=== PATIENT | male | born 1955 | race Caucasian/White ===

== ENCOUNTER 2017-01-15 08:40 | Day surgery (SDC) | payer OTHER ==
[2017-01-15] MEDS ORDERED: TETRACAINE 0.5% OPHTH 1 DOSE AFFEYE ONE ×2 (08:59→09:32)
[2017-01-15] MEDS ORDERED: ALPHAGAN-P OPHTH 1 DOSE AFFEYE ONE (09:03)
[2017-01-15 11:33] VITALS: BP 212/98
== END 2017-01-15 09:41 | disposition home or self-care (01) ==
LOC: SURG1 08:40
PROVIDERS: ATTEND Ophthalmology
PROC: 08QC3ZZ Repair Right Iris, Percutaneous Approach (ICD-10-PCS; principal; 2017-01-15 10:30)
DX: H40.10X1 Unspecified open-angle glaucoma, mild stage (principal)
CPT/HCPCS: 65855

== ENCOUNTER 2017-05-20 14:23 | Emergency (ER) | payer OTHER ==
[2017-05-20 14:34] VITALS: BMI 34.0
[2017-05-20] MEDS ORDERED: ZOFRAN INJ 4 MG VIAL IVP ONE (15:19)
[2017-05-20] MEDS ORDERED: NS 1000 ML 1,000 ML IV ONE (15:19)
[2017-05-20] MEDS ORDERED: MORPHINE SULFATE INJ 4 MG IVP ONE (15:19)
--- NOTE | 2017-05-20 15:23 | DR.ABDMALE ---
HPI - Time seen Time seen: 15:17 - PCP Primary Care Physician: DR. LONG - Complaint Chief Complaint Doctors Comments: Patient history as stated. He denies a history of trauma or colonic bowel disease. He denies fever or diarrhea. Chief Complaint:: PT STATES LAST NIGHT AT 2130 HE STARTED HAVING STOMACK PAIN , BACK PAIN , NAUSEA AND VOMITTING AND PROBLEMS PEEING.. Self Treatment fo Chief Complaint: PT TOOK PERCOCET, 2 MISSY ASA - Mode of arrival Mode of Arrival: Ambulatory - Timing Onset of Chief Complaint: 05/19/17 PMH - PMH Past Medical History: No Past Medical History: Arthritis Past Surgical History: Yes Surgical History: Appendectomy Past Surgical History Comment: KNEE REPLACEMENT AND BACK - Family History History of Family Medical Conditions: Yes Family Medical History: Cancer - Social History Does patient currently use any type of tobacco product: Yes Have you used tobacco products in the last 12 months: Yes Type of Tobacco Use: Cigarettes Does any household member use tobacco: No Alcohol Use: DAILY Do you use any recreational Drugs:: No Lives With: Family Lives Where: Home - infectious screening In the last 2 months have you had wt loss of >10#?: NO Have you had fever, night sweats or hemotysis?: No Have you traveled outside the country in the last 6 months?: No Isolation: Standard ROS - Review of Systems Eyes: No Symptoms Reported ENTM: No Symptoms Reported Respiratoy: No Symptoms Reported Cardiovascular: No Symptoms Reported Gastrointestinal/Abdominal: No Symptoms Reported Genitourinary: No Symptoms Reported Neurological: No Symptoms Reported Musculoskeletal: Back Pain, Other (stomach pain (LLQ)) Integumentary: No Symptoms Reported Hematologic/Lymphatic: No Symptoms Reported Endocrine: No Symptoms Reported Psychiatric: No Symptoms Reported All Other Systems: Reviewed and Negative PE - Vital Signs Vital Signs: Temp Pulse Resp BP BP Pulse Ox 05/20/17 17:07 203/77 05/20/17 15:58 220/105 05/20/17 14:29 97.8 F 90 18 213/107 97 01/15/17 09:36 212/98 - General Limitations: No Limitations General Appearance: Alert, In Distress - Head Head Exam: Normal Inspection, Atraumatic - Eyes Eye exam: Normal Appearance, PERRL, EOMI - ENT ENT Exam: Normal Exam - Neck Neck Exam: Normal Inspection, Full ROM - Chest Chest Inspection: Normal Inspection - Respiratory Respiratory Exam: Normal Lung Sounds Bilat Respiratory Exam: Bilateral Clear to Auscultation - Cardiovascular Cardiovascular Exam: Regular Rate - Abdominal Exam Abdominal Exam: Tenderness (LLQ) Abdominal Tenderness: LLQ - Rectal Rectal Exam: Deferred - Back Back Exam: Normal Inspection, Tenderness Course - Treatment Treatment: Toradol,Morphine, NS - Reevaluation 1st: Improved ROR - Labs Reviewed Result Diagrams: 05/20/17 15:35 05/20/17 15:35 Laboratory: WBC 9.1 X10^3/uL (3.6-10.0) 05/20/17 15:35 RBC 4.96 X10^6/uL (4.7-6.0) 05/20/17 15:35 Hgb 15.4 g/dL (13.5-18.0) 05/20/17 15:35 Hct 43.7 % (42.0-54.0) 05/20/17 15:35 MCV 88.2 fL (80.0-100.0) 05/20/17 15:35 MCH 31.0 pg (27.0-34.0) 05/20/17 15:35 MCHC 35.2 g/dL (33.0-35.0) H 05/20/17 15:35 RDW 13.9 % (11.6-16.5) 05/20/17 15:35 Plt Count 180 X10^3/uL (150.0-450.0) 05/20/17 15:35 MPV 6.9 fL (7.4-11.0) L 05/20/17 15:35 Neut % 74.5 % (42.0-75.0) 05/20/17 15:35 Lymph % 16.5 % (21.0-51.0) L 05/20/17 15:35 Citrus % 7.9 % (0.0-13.0) 05/20/17 15:35 Eos % 0.4 % (0.9-2.9) L 05/20/17 15:35 Baso % 0.7 % (0.2-1.0) 05/20/17 15:35 Neut # 6.8 x10^3/uL (2.2-4.8) H 05/20/17 15:35 Lymph # 1.5 X10^3/uL (1.3-2.9) 05/20/17 15:35 Citrus # 0.7 x10^3/uL (0.3-0.8) 05/20/17 15:35 Eos # 0.0 x10^3/uL (0.0-0.2) 05/20/17 15:35 Baso # 0.1 X10^3/uL (0.0-0.1) 05/20/17 15:35 Absolute Nucleated RBC 0.0 /100WBC 05/20/17 15:35 Sodium 135 mmol/L (136-145) L 05/20/17 15:35 Corrected Sodium 138 mmol/L (136-145) 05/20/17 15:35 Potassium 4.3 mmol/L (3.5-5.1) 05/20/17 15:35 Chloride 101 mmol/L (98-107) 05/20/17 15:35 Carbon Dioxide 23.4 mmol/L (21-32) 05/20/17 15:35 BUN 15 mg/dL (7-18) 05/20/17 15:35 Creatinine 1.02 mg/dL (0.70-1.30) 05/20/17 15:35 Est GFR (MDRD) Af Amer > 60 (>60) 05/20/17 15:35 Est GFR (MDRD) Non-Af > 60 (>60) 05/20/17 15:35 Glucose 216 mg/dL (65-99) H 05/20/17 15:35 Calcium 9.1 mg/dL (8.5-10.1) 05/20/17 15:35 Corrected Calcium TNP 05/20/17 15:35 Total Bilirubin 0.50 mg/dL (0.2-1.0) 05/20/17 15:35 AST 18 Units/L (15-37) 05/20/17 15:35 ALT 44 Units/L (12-78) 05/20/17 15:35 Alkaline Phosphatase 33 Units/L (46-116) L 05/20/17 15:35 C-Reactive Protein 6.70 mg/L (0-3.0) H 05/20/17 15:35 Total Protein 7.7 g/dL (6.4-8.2) 05/20/17 15:35 Albumin 4.2 g/dL (3.4-5.0) 05/20/17 15:35 Globulin 3.5 g/dL (2.5-4.5) 05/20/17 15:35 Albumin/Globulin Ratio 1.2 Ratio (1.1-2.1) 05/20/17 15:35 Amylase 26 Units/L (25-115) 05/20/17 15:35 Lipase 80 Units/L (73-393) 05/20/17 15:35 Specimen Type Clean catch urine 05/20/17 15:18 Urine Color Yellow (YELLOW) 05/20/17 15:18 Urine Appearance Clear (CLEAR) 05/20/17 15:18 Urine pH 5.0 (5.0 - 8.0) 05/20/17 15:18 Ur Specific [place] 1.025 (1.000-1.030) 05/20/17 15:18 Urine Protein 2+ (NEGATIVE) 05/20/17 15:18 Urine Glucose (UA) 3+ (NEGATIVE) 05/20/17 15:18 Urine Ketones 1+ (NEGATIVE) 05/20/17 15:18 Urine Occult Blood 4+ (NEGATIVE) 05/20/17 15:18 Urine Nitrite Negative (NEGATIVE) 05/20/17 15:18 Urine Bilirubin Negative (NEGATIVE) 05/20/17 15:18 Urine Urobilinogen Normal (NORMAL) 05/20/17 15:18 Ur Leukocyte Esterase Negative (NEGATIVE) 05/20/17 15:18 Urine RBC 04 - 08 /HPF (NEGATIVE) 05/20/17 15:18 Urine WBC Rare /HPF (NEGATIVE) 05/20/17 15:18 Ur Squamous Epith Cells Rare /HPF (NEGATIVE) 05/20/17 15:18 Amorphous Sediment 1+ /HPF (NEGATIVE) 05/20/17 15:18 Urine Bacteria Negative /HPF (NEGATIVE) 05/20/17 15:18 Urine Mucus Moderate /HPF (NEGATIVE) 05/20/17 15:18 Ur Culture Indicated? No/not indicated 05/20/17 15:18 - XRAY XRAY Interpreted by: Radiologist (CT Abd/Pelv: The visualized portions of the lung bases are unremarkable. There is left sided perinephric stranding with mild hydroureter hydronephrosis secondary to a 5 mm left mid ureteral stone the level of the aortic bifurcation. The liever is hypoattenuating compared to the spleen probably onn the basis of fatty infiltration. Solid otherwise unremarkable. The gallbladder is unremarkable in its CT appearance. No significant mesenteric lympadenopathy or stranding can be observed. No free fluid or free air is seen within the abdomen. No bowel wall thickening or bowel dilatation is present. The colon is unremarkable. Specifically, there is no diverticulosis noted within the sigmoid colon. The appendix is normal. The urinary bladder is grossly unremarkable. The bony structures are grossly intact. Impression: Left-sided obstructive uropathy as above.) - Diagnosis Discharge Problem: Hydrourter hydronehrosis, Obstructive uropathy - Discharge Plan Condition: Stable - Follow ups/Referrals Follow ups/Referrals: Jeison Long [Primary Care Provider] - 3 days - Instructions
[2017-05-20] MEDS ORDERED: MORPHINE SULFATE INJ 4 MG ONE (15:28)
[2017-05-20] MEDS ORDERED: ZOFRAN INJ 4 MG VIAL ONE (15:28)
[2017-05-20] MEDS ORDERED: NS 1000 ML 1,000 ML ONE (15:28)
[2017-05-20 15:48] LABS: BASOPHILS # (AUTO) 0.1 X10^3/uL (0.0-0.1); BASOPHILS % (AUTO) 0.7 % (0.2-1.0); EOSINOPHILS % (AUTO) 0.4 % (0.9-2.9); HEMATOCRIT 43.7 % (42.0-54.0); HEMOGLOBIN 15.4 g/dL (13.5-18.0); LYMPHOCYTES # (AUTO) 1.5 X10^3/uL (1.3-2.9); LYMPHOCYTES % (AUTO) 16.5 % (21.0-51.0); MEAN CORPUSCULAR HGB CONC 35.2 g/dL (33.0-35.0); MEAN CORPUSCULAR VOLUME 88.2 fL (80.0-100.0); MEAN PLATELET VOLUME 6.9 fL (7.4-11.0); MONOCYTES # (AUTO) 0.7 x10^3/uL (0.3-0.8); MONOCYTES % (AUTO) 7.9 % (0.0-13.0); NEUTROPHILS # (AUTO) 6.8 x10^3/uL (2.2-4.8); NEUTROPHILS % (AUTO) 74.5 % (42.0-75.0); PLATELET COUNT 180 X10^3/uL (150.0-450.0); RED BLOOD COUNT 4.96 X10^6/uL (4.7-6.0); RED CELL DISTRIBUTION WIDTH 13.9 % (11.6-16.5); WHITE BLOOD COUNT 9.1 X10^3/uL (3.6-10.0)
--- NOTE | 2017-05-20 15:52 | RAD ---
HISTORY: Abdominal pain. Study: Acute abdominal series. Comparison: Chest radiograph dated November 30, 2013. Findings: The trachea is midline. The cardiac silhouette is within normal limits. The lungs are clear withou t focal infiltrate or effusion. The bony thorax is unremarkable. Flat plate and upright evaluation of the abdomen demonstrates a nonobstructive bowel gas pattern. Th ere is no intraperitoneal free air or abnormal air-fluid levels on upright imaging. There are degen erative changes of the lumbar spine. The bony structures are grossly intact. IMPRESSION: 1. No acute cardiopulmonary disease. 2. No evidence for acute abdominal pathology. Reported By:
[2017-05-20 15:55] LABS: ALANINE AMINOTRANSFERASE 44 Units/L (12-78); ALBUMIN 4.2 g/dL (3.4-5.0); ALKALINE PHOSPHATASE 33 Units/L (46-116); AMYLASE 26 Units/L (25-115); ASPARTATE AMINO TRANSFERASE 18 Units/L (15-37); BLOOD UREA NITROGEN 15 mg/dL (7-18); CALCIUM 9.1 mg/dL (8.5-10.1); CARBON DIOXIDE 23.4 mmol/L (21-32); CHLORIDE 101 mmol/L (98-107); COR NA(FOR HYPERGLY) 138 mmol/L (136-145); CREATININE 1.02 mg/dL (0.70-1.30); GLUCOSE 216 mg/dL (65-99); LIPASE 80 Units/L (73-393); SODIUM 135 mmol/L (136-145); TOTAL PROTEIN 7.7 g/dL (6.4-8.2); eGFR BLACK RACES > 60 (>60); eGFR NON BLACK RACES > 60 (>60)
[2017-05-20] MEDS ORDERED: TORADOL 30 MG VIAL ONE (15:57)
[2017-05-20] MEDS ORDERED: TORADOL 30 MG VIAL IVP ONE (15:57)
[2017-05-20 15:58] LABS: BILIRUBIN,URINE NEGATIVE (NEGATIVE); BLOOD/HEMOGLOBIN,URINE 4+ (NEGATIVE); GLUCOSE, URINE 3+ (NEGATIVE); KETONES,URINE 1+ (NEGATIVE); LEUKOCYTE ESTERASE ,URINE NEGATIVE (NEGATIVE); NITRITES,URINE NEGATIVE (NEGATIVE); PROTEIN,URINE 2+ (NEGATIVE); UROBILINOGEN,URINE NORMAL (NORMAL)
[2017-05-20 16:00] LABS: APPEARANCE,URINE CLEAR (CLEAR); COLOR,URINE YELLOW (YELLOW)
[2017-05-20] MEDS ORDERED: CATAPRES TAB 0.1 MG PO ONE (16:00)
[2017-05-20] MEDS ORDERED: CATAPRES TAB 0.1 MG ONE (16:01)
[2017-05-20 16:04] LABS: AMORPHOUS SEDIMENT,UR 1+ /HPF (NEGATIVE); BACTERIA,URINE NEGATIVE /HPF (NEGATIVE); MUCUS,URINE MODERATE /HPF (NEGATIVE); SQUAMOUS EPITHELIAL CELL,UR RARE /HPF (NEGATIVE)
[2017-05-20] MEDS ORDERED: NS 100 ML IV 100 ML IV ONE (16:21)
--- NOTE | 2017-05-20 16:59 | CT ---
HISTORY: Abdominal pain since last night with nausea and vomiting Study: CT abdomen and pelvis with contrast Comparison: None Technique: Multiple axial images of the abdomen and pelvis were obtained from the lung bases to the pubic symph ysis after the administration of IV contrast. Findings: The visualized portions of the lung bases are unremarkable. There is left-sided perinephric strandi ng with mild hydroureter hydronephrosis secondary to a 5 millimeter left mid ureteral stone the leve l of the aortic bifurcation. The liver is hypoattenuating compared to the spleen probably on the bas is of fatty infiltration. Solid otherwise unremarkable.. The gallbladder is unremarkable in its CT a ppearance. No significant mesenteric lymphadenopathy or stranding can be observed. No free fluid o r free air is seen within the abdomen. No bowel wall thickening or bowel dilatation is present. Th e colon is unremarkable. Specifically, there is no diverticulosis noted within the sigmoid colon. T he appendix is normal. The urinary bladder is grossly unremarkable. The bony structures are grossly intact. IMPRESSION: 1. Left-sided obstructive uropathy as above. Reported By:
[2017-05-20 17:20] VITALS: BP 84/50
== END 2017-05-20 17:24 | disposition home or self-care (01) ==
LOC: ER 14:41
DX: N13.4 Hydroureter (principal); N13.8 Other obstructive and reflux uropathy; R10.84 Generalized abdominal pain
CPT/HCPCS: 36415; 74022; 74177; 80053; 81001; 82150; 83690; 85025; 86140; 96365; 96374; 96375; 99283; A4222; J1885; J2270; J2405

== ENCOUNTER → 2018-02-21 | Outpatient (CLI) | payer OTHER ==
[~2018-02-21] MED LIST: NS 100 ML IV 100 ML IV ONE
--- NOTE | 2018-02-21 17:48 | CT ---
HISTORY: Left foot infection, 3rd digit for 1 month. Right leg pain. Study: CT angiography with bilateral lower extremity runoff with and without contrast Comparison: Abdomen CT 05/20/2017 Technique: Multiple axial images were obtained both prior to and after the administration of IV contrast. 3D re constructions were performed utilizing radial maximum intensity projection imaging. Dose reduction te chniques including Automated Exposure Control (AEC) and adjustment of mA and kV were utilized. Findings: The visualized lung bases are clear. The solid organs are unremarkable. Normal gallbladder. There i s mild bowel wall thickening and mucosal hyper enhancement of the distal colon. No evidence of bowel obstruction. No free fluid or free air. The appendix is normal. Nicholas laminectomy changes are noted a t L5. The urinary bladder is unremarkable. Abdominal aorta: There is scattered density atherosclerotic plaque throughout the aorta without evide nce of aneurysm or dissection. Celiac trunk: Calcified plaque is seen at the origin without significant stenosis. Superior mesenteric artery: Calcified plaque is seen at the origin without significant stenosis. Renal Arteries: There are single bilateral renal arteries with [id number] stenosis on the left. Inferior mesenteric artery: Appears patent Common iliac arteries: No significant stenosis. External iliac arteries: No significant stenosis. Common femoral arteries: No significant stenosis. Superficial femoral arteries: Scattered multifocal plaque is seen throughout the bilateral superficia l femoral arteries without high-grade stenosis. Popliteal arteries: Multifocal plaque is seen bilaterally. Portions of the right popliteal artery are obscured by metallic streak artifact from prosthesis. There is a moderate to high-grade stenosis of the left popliteal artery proximal to the trifurcation. Tibioperoneal runoff: There is three-vessel runoff to the bilateral ankles. IMPRESSION: 1. Moderate to high-grade stenosis of the left popliteal artery just proximal to the trifurcation. 2. Otherwise no significant lower extremity arterial stenosis is identified however please note porti ons of the right popliteal artery are obscured by metallic streak artifact from prosthesis. 3. Normal caliber aorta with mild to moderate stenosis of the proximal left renal artery. Visceral ve ssels are otherwise unremarkable. Reported By:
== END ==
LOC: RAD 13:14
PROVIDERS: ATTEND Internal Medicine
DX: L03.032 Cellulitis of left toe (principal); M79.604 Pain in right leg
CPT/HCPCS: 73706; A4222

== ENCOUNTER 2019-08-19 09:14 | Observation (INO) ==
[2019-08-19 10:28] LABS: BASOPHILS % (AUTO) 0.7 % (0.2-1.0); EOSINOPHILS # (AUTO) 0.2 x10^3/uL (0.0-0.2); EOSINOPHILS % (AUTO) 3.4 % (0.9-2.9); HEMATOCRIT 27.7 % (42.0-54.0); HEMOGLOBIN 8.8 g/dL (13.5-18.0); LYMPHOCYTES # (AUTO) 1.2 X10^3/uL (1.3-2.9); LYMPHOCYTES % (AUTO) 24.8 % (21.0-51.0); MEAN CORPUSCULAR HEMOGLOBIN 21.9 pg (27.0-34.0); MEAN CORPUSCULAR HGB CONC 31.7 g/dL (33.0-35.0); MEAN CORPUSCULAR VOLUME 69.2 fL (80.0-100.0); MEAN PLATELET VOLUME 6.6 fL (7.4-11.0); MONOCYTES # (AUTO) 0.3 x10^3/uL (0.3-0.8); MONOCYTES % (AUTO) 6.3 % (0.0-13.0); NEUTROPHILS # (AUTO) 3.2 x10^3/uL (2.2-4.8); NEUTROPHILS % (AUTO) 64.8 % (42.0-75.0); PLATELET COUNT 245 X10^3/uL (150.0-450.0); RED BLOOD COUNT 4.01 X10^6/uL (4.7-6.0); RED CELL DISTRIBUTION WIDTH 17.8 % (11.6-16.5)
[2019-08-19 10:43] LABS: ALANINE AMINOTRANSFERASE 30 Units/L (12-78); ALBUMIN 3.9 g/dL (3.4-5.0); ALKALINE PHOSPHATASE 26 Units/L (46-116); ASPARTATE AMINO TRANSFERASE 17 Units/L (15-37); BLOOD UREA NITROGEN 11 mg/dL (7-18); CALCIUM 9.1 mg/dL (8.5-10.1); CARBON DIOXIDE 26.6 mmol/L (21-32); CHLORIDE 104 mmol/L (98-107); COR NA(FOR HYPERGLY) 141 mmol/L (136-145); CREATININE 0.87 mg/dL (0.70-1.30); SODIUM 140 mmol/L (136-145); TOTAL PROTEIN 7.2 g/dL (6.4-8.2); eGFR NON BLACK RACES > 60 (>60)
[2019-08-19 10:57] LABS: HYPOCHROMASIA 2+; MICROCYTOSIS 1+; PLATELET MORPHOLOGY COMMENT NORMAL (NORMAL)
[2019-08-19] MEDS ORDERED: DRUG FILTER EXTENSION SET ONE (11:29)
[2019-08-19] MEDS: PEPCID 20 MG IV PREMIX* 20 MG/50 ML BAG IV SCH ×2 (12:23→20:48)
[2019-08-19] MEDS: PROTONIX INJ 40 MG VIAL IVP SCH ×2 (12:23→20:48)
[2019-08-19] MEDS: NS 1000 ML 1,000 ML IV SCH ×3 (12:39→23:18)
[2019-08-19] MEDS ORDERED: DIPRIVAN VIAL ONE (14:17)
[2019-08-19] MEDS ORDERED: DIPRIVAN VIAL 20 ML ONE (14:50)
[2019-08-19] MEDS ORDERED: DIPRIVAN VIAL 0 ML ONE (15:28)
[2019-08-19] MEDS ORDERED: DULCOLAX TAB EC 5 MG PO ONE (22:00)
[2019-08-20 06:30] LABS: BASOPHILS % (AUTO) 0.9 % (0.2-1.0); EOSINOPHILS # (AUTO) 0.2 x10^3/uL (0.0-0.2); EOSINOPHILS % (AUTO) 5.1 % (0.9-2.9); HEMATOCRIT 25.5 % (42.0-54.0); HEMOGLOBIN 8.2 g/dL (13.5-18.0); LYMPHOCYTES # (AUTO) 1.3 X10^3/uL (1.3-2.9); LYMPHOCYTES % (AUTO) 28.3 % (21.0-51.0); MEAN CORPUSCULAR HEMOGLOBIN 22.1 pg (27.0-34.0); MEAN CORPUSCULAR HGB CONC 31.9 g/dL (33.0-35.0); MEAN CORPUSCULAR VOLUME 69.2 fL (80.0-100.0); MEAN PLATELET VOLUME 6.9 fL (7.4-11.0); MONOCYTES # (AUTO) 0.3 x10^3/uL (0.3-0.8); NEUTROPHILS # (AUTO) 2.7 x10^3/uL (2.2-4.8); NEUTROPHILS % (AUTO) 58.7 % (42.0-75.0); PLATELET COUNT 226 X10^3/uL (150.0-450.0); RED BLOOD COUNT 3.69 X10^6/uL (4.7-6.0); RED CELL DISTRIBUTION WIDTH 17.9 % (11.6-16.5); WHITE BLOOD COUNT 4.7 X10^3/uL (3.6-10.0)
[2019-08-20 06:32] LABS: ALANINE AMINOTRANSFERASE 26 Units/L (12-78); ALBUMIN 3.4 g/dL (3.4-5.0); ALKALINE PHOSPHATASE 24 Units/L (46-116); ASPARTATE AMINO TRANSFERASE 20 Units/L (15-37); BLOOD UREA NITROGEN 7 mg/dL (7-18); CALCIUM 8.4 mg/dL (8.5-10.1); CARBON DIOXIDE 24.5 mmol/L (21-32); CHLORIDE 107 mmol/L (98-107); CREATININE 0.72 mg/dL (0.70-1.30); SODIUM 141 mmol/L (136-145); TOTAL PROTEIN 6.4 g/dL (6.4-8.2); eGFR NON BLACK RACES > 60 (>60)
[2019-08-20 07:05] LABS: HYPOCHROMASIA 1+; MICROCYTOSIS 1+; PLATELET MORPHOLOGY COMMENT NORMAL (NORMAL)
[2019-08-20] MEDS: PROTONIX INJ 40 MG VIAL IVP SCH ×2 (08:44→20:24)
[2019-08-20] MEDS: PEPCID 20 MG IV PREMIX* 20 MG/50 ML BAG IV SCH ×2 (08:44→20:24)
--- NOTE | 2019-08-20 08:47 | DR.CONSULT ---
Consult - Consultation for Day of: Date: 08/19/19 - Chief Complaint Chief Complaint: Patient referred for GI Bleed. Patient with complaints of dysphagia, dyspepsia, epigastric and chest pain, diarrhea and melena. - History of Present Illness History of Present Illness: Patient is a 64yo male who referred for GI Bleed. Patient with complaints of dysphagia, dyspepsia, epigastric and chest pain, diarrhea x 2 months and melena x 1 week. Patient denies nausea, vomiting, constipation and hematochezia. Patient has never had colon or EGD. Hgb 8.8, Hct 27.7, Plt 245, BUN 11, Creatinine 0.87. - Past Medical History Past Medical History: Arthritis - Past Surgical History Surgical History: Appendectomy, Joint Replacement, Lithotripsy, Other - Family History Family Medical History: Cancer - Social History Does patient currently use any type of tobacco product: No Have you used tobacco products in the last 12 months: No Type of Tobacco Use: None Does any household member use tobacco: No Alcohol Use: DAILY Drug Use: Marijuana - Medications Home Medications: No Known Drug Allergies Allergy (Verified 08/19/19 16:22) CONTINUE taking the following medications brimonidine 1 drp OPHTHALMIC (EYE) BID 08/19/19 [History] celecoxib 200 mg PO DAILY 08/19/19 [History] latanoprost 1 drp OPHTHALMIC (EYE) HS 08/19/19 [History] oxycodone-acetaminophen 1 tab PO QID PRN 08/19/19 [History] pantoprazole 40 mg PO DAILY 08/19/19 [History] rosuvastatin 10 mg PO HS 08/19/19 [History] - Review of Systems Gastrointestinal: See HPI, Abdominal Pain (epigastric ), Diarrhea, Melena. denies: Nausea, Vomiting, Constipation, Hematochezia, Other - Physical Exam Vital Signs: Temperature 98.1 F Pulse Rate [Right Brachial] 76 Pulse Rate [Left Brachial] 84 Respiratory Rate 18 Blood Pressure [Right Arm] 158/76 Blood Pressure 84/50 O2 Sat by Pulse Oximetry 98 Oriented: Normal Eyes: Normal Ear: Normal Nose: Normal Throat: Normal Respiratory: Clear Throughout Cardiovascular: Normal : Normal Auscultation: Bowel Sounds: Normal Palpation: Normal, Other (no distention). negative: Spleen Enlarged, Liver Enlarged, Mass Pulsatile Tenderness: Normal (no tenderness) Skin: Normal Musculoskeletal: Normal Psychiatric: Normal Mood Description: Calm Affect: Normal Speech Pattern: Clear, Appropriate - Plan Plan: Assessment. 1. Anemia, Melena. 2. epigastric pain, atypical chest pain. 3. Diarrhea. Plan. 1. EGD today, Colon on . 2. Protonix IV. 3. Stool Studies. Plan reviewed with Dr. Guzman - Allergies Allergies/Adverse Reactions: Allergies Allergy/AdvReac Type Severity Reaction Status Date / Time No Known Drug Allergies Allergy Verified 08/19/19 16:22
--- NOTE | 2019-08-20 10:36 | DR.UPDATE ---
H&P Update History and Physical Update: History and Physical reviewed and patient examined. Changes noted: Yes with the following: RETURNED TO THE OFFICE TODAY WITH COMPLAINTS OF ABDOMINAL PAIN, BLOOD IN STOOL, AND GENERALIZED WEAKNESS AND FATIGUE. HE ALSO REPORTED SHORTNESS OF BREATH AND DIZZINESS. WE ADMITTED PATIENT FOR FURTHER EVALUATION AND TREATMENT OF GI BLEED, SHORTNESS OF BREATH, AND ANEMIA. ON ADMISSION, WE PLAN TO OBTAIN LABS AND CHECK STOOLS FOR OCCULT BLOOD. WE WILL CONSULT WITH GASTROENTEROLOGY FOR EGD/COLONOSCOPY. WE WILL START NORMAL SALINE AT 80ML/HR, IV PEPCID, IV PROTONIX. OTHERWISE, WE WILL FOLLOW UP WITH AM LABS AND CONTINUE TO MONITOR. Prescription drug monitoring program results: PDMP was not reviewed
[2019-08-20] MEDS ORDERED: MIRALAX POWDER (255 GRAMS BTL) PO NR (12:00)
[2019-08-20] MEDS ORDERED: BENADRYL INJ 50 MG VIAL IVP ONE (12:57)
[2019-08-20] MEDS ORDERED: TYLENOL 325 MG TAB PO ONE (12:57)
[2019-08-20] MEDS ORDERED: NS 100 ML IV 100 ML IV ONE ×2 (13:15→16:44)
[2019-08-20] MEDS: NS 1000 ML 1,000 ML IV SCH (14:01)
[2019-08-20] MEDS ORDERED: DULCOLAX TAB EC 5 MG PO ONE (18:00)
[2019-08-20] MEDS ORDERED: NORMODYNE INJ 100 MG VIAL ONE (18:20)
[2019-08-20] MEDS: NORMODYNE INJ 20 MG VIAL IV PRN (18:30)
[2019-08-20 20:02] LABS: HEMATOCRIT 27.8 % (42.0-54.0)
--- NOTE | 2019-08-20 22:19 | PCM.PROG ---
Progress Note - Progress Note for Day of Date of Exam: 08/20/19 - Subjective Subjective: WAS ADMITTED FOR A GI BLEED, ANEMIA, SHORTNESS OF BREATH, AND GENERALIZED WEAKNESS. TODAY, HE IS ALERT AND ORIENTED, LYING IN BED ON MORNING ROUNDS. HE CONTINUES WITH COMPLAINTS OF SHORTNESS OF BREATH, DECREASED APPETITIE, AND BLOOD IN STOOL TODAY. ON EXAMINATION, HEART IS REGULAR IN RATE AND RHYTHM. BILATERAL LUNGS ARE CLEAR TO AUSCULTATION. ABDOMEN IS ROUND, SOFT, AND NOTED WITH MILD, DIFFUSE TENDERNESS. NORMAL BOWEL SOUNDS ARE NOTED IN ALL QUADRANTS. HIS VITALS THIS MORNING ARE: 98.7-80-18-100%-178/71. LABS WERE OBTAINED. ABNORMAL LAB VALUES INCLUDE THE FOLLOWING: RBC 3.69, HGB 8.2, HCT 25.5, GLUCOSE 109, CALCIUM 8.4, IRON 17, FERRITIN 12, ALK PHOS 24. STOOL IS POSITIVE FOR OCCULT BLOOD. AN EGD WAS PERFORMED YESTERDAY. POST ENDOSCOPY DIAGNOSES INCLUDE THE FOLLOWING: Ectopic mucosa in the upper most esophagus consistent with an inlet patch, biopsies done; antral gastritis and mild distal esophagitis. HE IS CURRENTLY RECEIVING NORMAL SALINE AT 80ML/HR, IV PEPCID, IV PROTONIX. TODAY, WE WILL TYPE AND SCREEN AND CROSSMATCH TWO UNITS OF PACKED RED BLOOD CELLS. HE IS SCHEDULED FOR A COLONOSCOPY TOMORROW MORNING. AFTER COLONOSCOPY, WE WILL OBTAIN AN ABDOMEN/PELVIS CT WITH CONTRAST. OTHERWISE, WE PLAN TO FOLLOW UP WITH AM LABS AND CONTINUE TO MONITOR. - Past Medical Family Social History Past Med/Fam/Surg Hx: No changes since H&P Allergies: Allergies No Known Drug Allergies Allergy (Verified 08/19/19 16:22) - Review of Systems ROS: No change since H&P - Vital Signs and I&O's Vital Signs: Temperature 98.8 F Pulse Rate [Right Brachial] 76 Pulse Rate [Left Brachial] 78 Respiratory Rate 20 Blood Pressure [Right Arm] 173/80 Blood Pressure 84/50 O2 Sat by Pulse Oximetry 99 Intake and Output: Intake & Output 08/18/19 08/19/19 08/20/19 08/21/19 11:59 11:59 11:59 11:59 Intake Total 2079 1380 / 1380 Balance 2079 1380 / 1380 - Physical Exam Oriented: Normal Eyes: Normal Ear: Normal Nose: Normal Throat: Normal Respiratory: Normal Cardiovascular: Normal : Normal Auscultation: Bowel Sounds: Normal Palpation: Normal Tenderness: Normal (no tenderness) Skin: Normal Musculoskeletal: Normal Psychiatric: Normal Mood Description: Calm Affect: Normal Speech Pattern: Clear, Appropriate - Laboratory and Diagnostics Result Diagrams: 08/20/19 19:54 08/20/19 05:12 Labs: Laboratory WBC 4.7 X10^3/uL (3.6-10.0) 08/20/19 05:12 RBC 3.69 X10^6/uL (4.7-6.0) L 08/20/19 05:12 Hgb 9.0 g/dL (13.5-18.0) L 08/20/19 19:54 Hct 27.8 % (42.0-54.0) L 08/20/19 19:54 MCV 69.2 fL (80.0-100.0) L 08/20/19 05:12 MCH 22.1 pg (27.0-34.0) L 08/20/19 05:12 MCHC 31.9 g/dL (33.0-35.0) L 08/20/19 05:12 RDW 17.9 % (11.6-16.5) H 08/20/19 05:12 Plt Count 226 X10^3/uL (150.0-450.0) 08/20/19 05:12 Plt Count Comment Adequate (ADEQUATE) 08/20/19 05:12 MPV 6.9 fL (7.4-11.0) L 08/20/19 05:12 Neut % (Auto) 58.7 % (42.0-75.0) 08/20/19 05:12 Lymph % (Auto) 28.3 % (21.0-51.0) 08/20/19 05:12 [place] % (Auto) 7.0 % (0.0-13.0) 08/20/19 05:12 Eos % (Auto) 5.1 % (0.9-2.9) H 08/20/19 05:12 Baso % (Auto) 0.9 % (0.2-1.0) 08/20/19 05:12 Neut # (Auto) 2.7 x10^3/uL (2.2-4.8) 08/20/19 05:12 Lymph # (Auto) 1.3 X10^3/uL (1.3-2.9) 08/20/19 05:12 [place] # (Auto) 0.3 x10^3/uL (0.3-0.8) 08/20/19 05:12 Eos # (Auto) 0.2 x10^3/uL (0.0-0.2) 08/20/19 05:12 Baso # (Auto) 0.0 X10^3/uL (0.0-0.1) 08/20/19 05:12 Absolute Nucleated RBC 0.0 /100WBC 08/20/19 05:12 Plt Morphology Comment Normal (NORMAL) 08/20/19 05:12 RBC Morphology Abnormal (NORMAL) 08/20/19 05:12 Hypochromasia 1+ A 08/20/19 05:12 Microcytosis 1+ A 08/20/19 05:12 Sodium 141 mmol/L (136-145) 08/20/19 05:12 Corrected Sodium TNP 08/20/19 05:12 Potassium 3.9 mmol/L (3.5-5.1) 08/20/19 05:12 Chloride 107 mmol/L (98-107) 08/20/19 05:12 Carbon Dioxide 24.5 mmol/L (21-32) 08/20/19 05:12 BUN 7 mg/dL (7-18) 08/20/19 05:12 Creatinine 0.72 mg/dL (0.70-1.30) 08/20/19 05:12 Est GFR (MDRD) Af Amer > 60 (>60) 08/20/19 05:12 Est GFR (MDRD) Non-Af > 60 (>60) 08/20/19 05:12 Glucose 109 mg/dL (65-99) H 08/20/19 05:12 Calcium 8.4 mg/dL (8.5-10.1) L 08/20/19 05:12 Corrected Calcium TNP 08/20/19 05:12 Iron 17 ug/dL (50-175) L 08/20/19 10:34 Transferrin 329 mg/dL (202-364) 08/20/19 10:34 Ferritin 12 ng/mL (26-388) L 08/20/19 10:34 Total Bilirubin 0.40 mg/dL (0.2-1.0) 08/20/19 05:12 AST 20 Units/L (15-37) 08/20/19 05:12 ALT 26 Units/L (12-78) 08/20/19 05:12 Alkaline Phosphatase 24 Units/L (46-116) L 08/20/19 05:12 Total Protein 6.4 g/dL (6.4-8.2) 08/20/19 05:12 Albumin 3.4 g/dL (3.4-5.0) 08/20/19 05:12 Globulin 3.0 g/dL (2.5-4.5) 08/20/19 05:12 Albumin/Globulin Ratio 1.1 Ratio (1.1-2.1) 08/20/19 05:12 Vitamin B12 723 pg/mL (193-986) 08/20/19 10:34 Folate 18.5 ng/mL (>8.6) 08/20/19 10:34 Stool Description 100g,liquid,brown 08/19/19 19:35 Stl Occult Blood (IFOB) Positive (NEGATIVE) A 08/19/19 19:35 Tissue Pathology To follow 08/19/19 15:28 Blood Type A POSITIVE 08/20/19 10:34 Antibody Screen Negative 08/20/19 10:34 Crossmatch See Detail 08/20/19 10:34 - Plan (1) GI bleed Status: Acute Qualifiers: GI bleed type/associated pathology: unspecified gastrointestinal hemorrhage type Qualified Code(s): K92.2 - Gastrointestinal hemorrhage, unspecified Plan: COLONOSCOPY TOMORROW MORNING, NORMAL SALINE AT 80ML/HR, IV PEPCID, IV PRO TONIX. (2) Shortness of breath Status: Acute (3) Anemia Status: Acute Qualifiers: Anemia type: iron deficiency Iron deficiency anemia type: unspecified iron deficiency Qualified Code(s): D50.9 - Iron deficiency anemia, unspecified Plan: TRANSFUSE 2 UNITS PRBC, CONTINUE TO MONITOR
[2019-08-21] MEDS: NS 1000 ML 1,000 ML IV SCH ×2 (01:34→15:50)
[2019-08-21 06:30] LABS: BASOPHILS # (AUTO) 0.1 X10^3/uL (0.0-0.1); EOSINOPHILS # (AUTO) 0.2 x10^3/uL (0.0-0.2); EOSINOPHILS % (AUTO) 2.9 % (0.9-2.9); HEMATOCRIT 27.8 % (42.0-54.0); LYMPHOCYTES # (AUTO) 1.1 X10^3/uL (1.3-2.9); LYMPHOCYTES % (AUTO) 18.8 % (21.0-51.0); MEAN CORPUSCULAR HEMOGLOBIN 23.1 pg (27.0-34.0); MEAN CORPUSCULAR HGB CONC 32.5 g/dL (33.0-35.0); MEAN PLATELET VOLUME 6.9 fL (7.4-11.0); MONOCYTES # (AUTO) 0.4 x10^3/uL (0.3-0.8); MONOCYTES % (AUTO) 6.6 % (0.0-13.0); NEUTROPHILS % (AUTO) 70.7 % (42.0-75.0); PLATELET COUNT 211 X10^3/uL (150.0-450.0); RED BLOOD COUNT 3.92 X10^6/uL (4.7-6.0); RED CELL DISTRIBUTION WIDTH 18.8 % (11.6-16.5); WHITE BLOOD COUNT 5.7 X10^3/uL (3.6-10.0)
[2019-08-21 06:36] LABS: ALANINE AMINOTRANSFERASE 24 Units/L (12-78); ALBUMIN 3.7 g/dL (3.4-5.0); ALKALINE PHOSPHATASE 25 Units/L (46-116); ASPARTATE AMINO TRANSFERASE 15 Units/L (15-37); BLOOD UREA NITROGEN 6 mg/dL (7-18); CALCIUM 8.6 mg/dL (8.5-10.1); CARBON DIOXIDE 22.6 mmol/L (21-32); CHLORIDE 106 mmol/L (98-107); COR NA(FOR HYPERGLY) 142 mmol/L (136-145); CREATININE 0.83 mg/dL (0.70-1.30); SODIUM 141 mmol/L (136-145); TOTAL PROTEIN 6.6 g/dL (6.4-8.2); eGFR NON BLACK RACES > 60 (>60)
[2019-08-21 06:53] LABS: HYPOCHROMASIA 1+; MICROCYTOSIS 1+; PLATELET MORPHOLOGY COMMENT NORMAL (NORMAL)
[2019-08-21 06:54] LABS: ANISOCYTOSIS 1+
[2019-08-21] MEDS: PROTONIX INJ 40 MG VIAL IVP SCH (08:23)
[2019-08-21] MEDS: PEPCID 20 MG IV PREMIX* 20 MG/50 ML BAG IV SCH (08:23)
[2019-08-21] MEDS ORDERED: PATIENT'S HOME MEDICATION (Oxycodone-Acetaminophen 1 TAB) PO PRN (11:36)
[2019-08-21] MEDS ORDERED: ALPHAGAN 0.2% OPHTH SOLN OP SCH (12:00)
[2019-08-21] MEDS ORDERED: CELEBREX PO SCH (12:00)
[2019-08-21] MEDS: NORMODYNE INJ 20 MG VIAL IV PRN (12:52)
[2019-08-21] MEDS ORDERED: PERCOCET TAB 5/325 MG PO PRN (12:53)
[2019-08-21] MEDS ORDERED: DIPRIVAN VIAL ONE (15:03)
[2019-08-21] MEDS ORDERED: STERILE WATER IRRIGATION IR ONE (15:23)
--- NOTE | 2019-08-21 15:33 | CT ---
History: Pain and status post colonoscopy with GI bleed Exam: CT abdomen and pelvis with contrast Comparison: 05/20/2017 Technique: Axial spiral images were obtained from lung bases through the pubic symphysis after administration IV and oral contrast. Automated dose control was utilized. Findings: There is mild linear scarring along the lung bases which are unchanged. The liver is normal size with fatty replacement throughout . The gallbladder, pancreas , and bile ducts are normal. The spleen measures 16 cm in length is normal density and unchanged. The adrenals are normal . The kidneys are normal size and function normally with no hydronephrosis, renal stone , or mass. The appendix is normal. There is mild a short segmental area of mild circumferential mucosal thickening along the mid to distal sigmoid colon extending distally , just proximal to the rectosigmoid region . There is mild stranding around the colon which is more prominent . No pericolonic fluid collection or mass is seen. No adenopathy or ascites is seen. The mesentery is unremarkable. The bladder is unremarkable. The prostate gland is mildly enlarged with mild fat density along the inguinal regions with no bowel loops in the area which is unchanged . There is no bowel obstruction . There are diverticula throughout the sigmoid colon. There are small subchondral cystic changes along the right femoral head anteriorly which are unchanged . There degenerative changes seen in the spine with no aggressive osseous lesion. IMPRESSION: Questionable short segmental area of mild diverticulitis or possible neoplasm along the mid to distal sigmoid colon with no pericolonic fluid collection and no bowel obstruction suggest . Recommend a follow-up barium enema or endoscopy, after the patient's symptoms resolve . Scattered diverticula throughout the sigmoid colon and a normal appendix. Mild splenomegaly . Normal size liver without with fatty changes throughout . Mild bibasilar discoid atelectasis or scarring . Mild prostatic enlargement and questionable small inguinal hernias bilaterally. Reported By:
[2019-08-21 16:45] VITALS: BP 164/79
[2019-08-21] MEDS ORDERED: CRESTOR TAB 10 MG PO SCH (21:00)
[2019-08-21] MEDS ORDERED: XALATAN OP SCH (21:00)
== END 2019-08-21 16:35 | disposition home or self-care (01) ==
LOC: MED/SURG
PROVIDERS: ADMIT Internal Medicine; ATTEND Internal Medicine
DX: K29.01 Acute gastritis with bleeding; R06.02 Shortness of breath; N40.0 Benign prostatic hyperplasia without lower urinary tract symptoms; D50.8 Other iron deficiency anemias; C18.7 Malignant neoplasm of sigmoid colon; R42 Dizziness and giddiness; K21.9 Gastro-esophageal reflux disease without esophagitis; R07.89 Other chest pain; K92.1 Melena; Z79.899 Other long term (current) drug therapy; R10.13 Epigastric pain; I10 Essential (primary) hypertension; R53.1 Weakness; K20.9 Esophagitis, unspecified; K64.0 First degree hemorrhoids; R10.84 Generalized abdominal pain; R94.31 Abnormal electrocardiogram [ECG] [EKG]
CPT/HCPCS: 36415; 36430; 74177; 80053; 82270; 82378; 82607; 82728; 82746; 83540; 83735; 84466; 85014; 85018; 85025; 86301; 86316; 86850; 86900; 86901; 86922; 93005; 94760; 96360; 96361; 96374; A4216; A4217; A4222; C9113; P9016; S0028; G0378; J1200; J2704; J3490; J7030; J7050

== ENCOUNTER 2023-05-25 07:49 | Inpatient (IN) ==
[2023-05-25] MEDS: SOLU-Medrol 125 MG VIAL IVP SCH ×3 (10:45→22:12)
[2023-05-25] MEDS: NS 1,000 ML IV 1,000 ML IV SCH ×3 (10:45→22:29)
[2023-05-25] MEDS ORDERED: CONSULT PHARMACY - POTASSIUM & MAGNESIUM XX SCH (11:00)
[2023-05-25 11:34] LABS: ERYTHROCYTE SEDIMENTATION RATE 65 MM/HOUR (0-15)
[2023-05-25 11:37] LABS: BASOPHILS % (AUTO) 0.5 % (0.2-1.0); EOSINOPHILS % (AUTO) 1.2 % (0.9-2.9); HEMATOCRIT 29.4 % (42.0-54.0); HEMOGLOBIN 9.5 g/dL (13.5-18.0); LYMPHOCYTES % (AUTO) 26.9 % (21.0-51.0); MEAN CORPUSCULAR HEMOGLOBIN 26.7 pg (27.0-34.0); MEAN CORPUSCULAR HGB CONC 32.3 g/dL (33.0-35.0); MEAN CORPUSCULAR VOLUME 82.8 fL (80.0-100.0); MEAN PLATELET VOLUME 6.8 fL (7.4-11.0); MONOCYTES # (AUTO) 0.3 x10^3/uL (0.3-0.8); MONOCYTES % (AUTO) 7.3 % (0.0-13.0); NEUTROPHILS # (AUTO) 2.3 x10^3/uL (2.2-4.8); NEUTROPHILS % (AUTO) 64.1 % (42.0-75.0); PLATELET COUNT 381 X10^3/uL (150.0-450.0); RED BLOOD COUNT 3.55 X10^6/uL (4.7-6.0); RED CELL DISTRIBUTION WIDTH 16.8 % (11.6-16.5); WHITE BLOOD COUNT 3.7 X10^3/uL (3.6-10.0)
[2023-05-25 11:41] LABS: ALANINE AMINOTRANSFERASE 19 Units/L (12-78); ALBUMIN 2.3 g/dL (3.4-5.0); ALKALINE PHOSPHATASE 53 Units/L (46-116); ASPARTATE AMINO TRANSFERASE 9 Units/L (15-37); BLOOD UREA NITROGEN 7 mg/dL (7-18); CALCIUM 8.4 mg/dL (8.5-10.1); CARBON DIOXIDE 28.6 mmol/L (21-32); CHLORIDE 101 mmol/L (98-107); COR CA(FOR HYPOALB) 9.8 mg/dL (8.5-10.1); COR NA(FOR HYPERGLY) 138 mmol/L (136-145); CREATININE 0.73 mg/dL (0.70-1.30); GLUCOSE 159 mg/dL (65-99); POTASSIUM 3.4 mmol/L (3.5-5.1); SODIUM 137 mmol/L (136-145); TOTAL PROTEIN 5.6 g/dL (6.4-8.2); eGFR NON BLACK RACES > 60 (>60)
[2023-05-25] MEDS: K-DUR TAB 20 MEQ PO SCH ×2 (12:26→22:06)
[2023-05-25 18:01] LABS: CRYPTOSPORIDIUM PARVUM ANTIGEN NEGATIVE (NEGATIVE); GIARDIA LAMBLIA ANTIGEN NEGATIVE (NEGATIVE)
[2023-05-25 18:39] LABS: BILIRUBIN,URINE NEGATIVE (NEGATIVE); BLOOD/HEMOGLOBIN,URINE NEGATIVE (NEGATIVE); GLUCOSE, URINE 4+ (NEGATIVE); KETONES,URINE NEGATIVE (NEGATIVE); LEUKOCYTE ESTERASE ,URINE NEGATIVE (NEGATIVE); NITRITES,URINE NEGATIVE (NEGATIVE); PROTEIN,URINE NEGATIVE (NEGATIVE); UROBILINOGEN,URINE NORMAL (NORMAL)
[2023-05-25 18:45] LABS: APPEARANCE,URINE CLEAR (CLEAR); COLOR,URINE PALE YELLOW (YELLOW)
[2023-05-25] MEDS ORDERED: LOMOTIL PO PRN (21:15)
[2023-05-25] MEDS ORDERED: PERCOCET TAB 5/325 MG PO PRN (21:42)
[2023-05-25] MEDS ORDERED: BALSALAZIDE 750 MG PO SCH (22:00)
[2023-05-25] MEDS: PLAVIX PO SCH (22:04)
[2023-05-25] MEDS: LIPITOR TAB 80 MG PO SCH (22:49)
[2023-05-25] MEDS: NovoLIN R (or HumuLIN R) SUBCUT PRN (22:50)
[2023-05-26] MEDS: NS 1,000 ML IV 1,000 ML IV SCH ×5 (02:21→21:12)
[2023-05-26] MEDS: SOLU-Medrol 125 MG VIAL IVP SCH ×4 (02:21→21:14)
--- NOTE | 2023-05-26 05:36 | RAD ---
PROCEDURE: Acute Abdomen Series .HISTORY: Abdomen pain and diarrhea.TECHNIQUE: AP supine and upright abdomen with AP chest x-ray views .COMPARISON: 04/05/2023 chest x-ray and 05/20/2017 abdomen.TECHNICAL QUALITY: Satisfactory .FINDINGS:Unchanged heart size upper limits of normal.Clear lungs.No pneumoperitoneum.Mild gases distension of the stomach. Some air in large and small bowel could represent mild ileus. Mild feces in the colon. No obstruction.No organomegaly.No abnormal calcifications.IMPRESSION:1. Possible mild ileus.2. Unchanged heart size upper limits of normal.Electronically signed by: Aron Escudero (May 26, 2023 05:35:01)
[2023-05-26 05:50] LABS: BASOPHILS % (AUTO) 0.3 % (0.2-1.0); EOSINOPHILS % (AUTO) 0.1 % (0.9-2.9); HEMATOCRIT 24.9 % (42.0-54.0); HEMOGLOBIN 8.2 g/dL (13.5-18.0); LYMPHOCYTES # (AUTO) 0.5 X10^3/uL (1.3-2.9); LYMPHOCYTES % (AUTO) 18.7 % (21.0-51.0); MEAN CORPUSCULAR HEMOGLOBIN 26.8 pg (27.0-34.0); MEAN CORPUSCULAR HGB CONC 32.9 g/dL (33.0-35.0); MEAN CORPUSCULAR VOLUME 81.6 fL (80.0-100.0); MEAN PLATELET VOLUME 7.1 fL (7.4-11.0); MONOCYTES # (AUTO) 0.1 x10^3/uL (0.3-0.8); MONOCYTES % (AUTO) 3.8 % (0.0-13.0); NEUTROPHILS % (AUTO) 77.1 % (42.0-75.0); PLATELET COUNT 331 X10^3/uL (150.0-450.0); RED BLOOD COUNT 3.05 X10^6/uL (4.7-6.0); RED CELL DISTRIBUTION WIDTH 17.1 % (11.6-16.5); WHITE BLOOD COUNT 2.6 X10^3/uL (3.6-10.0)
[2023-05-26] MEDS: NovoLIN R (or HumuLIN R) SUBCUT PRN ×5 (05:58→21:14)
[2023-05-26 06:00] LABS: ALANINE AMINOTRANSFERASE 17 Units/L (12-78); ALBUMIN 1.9 g/dL (3.4-5.0); ALKALINE PHOSPHATASE 51 Units/L (46-116); ASPARTATE AMINO TRANSFERASE 8 Units/L (15-37); BLOOD UREA NITROGEN 7 mg/dL (7-18); CALCIUM 8.1 mg/dL (8.5-10.1); CARBON DIOXIDE 25.7 mmol/L (21-32); CHLORIDE 103 mmol/L (98-107); COR CA(FOR HYPOALB) 9.8 mg/dL (8.5-10.1); COR NA(FOR HYPERGLY) 142 mmol/L (136-145); CREATININE 0.51 mg/dL (0.70-1.30); GLUCOSE 269 mg/dL (65-99); MAGNESIUM 1.8 mg/dL (2.0-2.9); POTASSIUM 3.7 mmol/L (3.5-5.1); SODIUM 138 mmol/L (136-145); TOTAL PROTEIN 5.1 g/dL (6.4-8.2); eGFR NON BLACK RACES > 60 (>60)
[2023-05-26] MEDS ORDERED: CONSULT PHARMACY - POTASSIUM & MAGNESIUM XX SCH (07:00)
[2023-05-26] MEDS: K-DUR TAB 20 MEQ PO SCH ×2 (08:31→21:13)
[2023-05-26] MEDS: BALSALAZIDE 2250 MG PO SCH ×3 (08:31→21:16)
[2023-05-26] MEDS: PLAVIX PO SCH (08:32)
[2023-05-26] MEDS: MAG-OX TAB PO SCH ×2 (08:32→10:19)
[2023-05-26] MEDS: LOPRESSOR TAB 50 MG PO SCH ×2 (08:32→21:14)
[2023-05-26] MEDS ORDERED: PLAVIX PO SCH (09:00)
[2023-05-26] MEDS ORDERED: K-DUR TAB 20 MEQ PO SCH ×2 (09:00)
[2023-05-26] MEDS: TRUSOPT PLUS (OPHTH) OP SCH (09:20)
[2023-05-26 10:20] VITALS: BMI 27.4
--- NOTE | 2023-05-26 11:10 | DR.H&P ---
H&P - History & Physical for Day of: H&P Date: 05/25/23 - Chief Complaint Chief Complaint: DIARRHEA, WEAKNESS - History of Present Illness History of Present Illness: IS A 67 YEAR OLD PATIENT OF OURS. HE HAS A PMH OF CATARACTS, GLAUCOMA, CAD, HYPERLIPIDEMIA, [place], HTN, TYPE 2 DM, IRRITABLE BOWEL SYNDROME, ARTHRITIS, CHRONIC BACK PAIN, HX OF MELANOMA AND BASAL CELL CARCINOMA, COLON CANCER, APPENDECTOMY, RIGHT KNEE REPLACEMENT, LITHOTRIPSY, AND OPEN HEART SURGERY WITH BYPASS X 5. HE PRESENTED A DIRECT ADMISSION FOR FURTHER EVALUATION AND TREATMENT OF ULCERATIVE COLITIS FLARE, INTRACTABLE DIARRHEA, AND ELECTROLITE DEPLETION. PATIENT REPORTS THAT HE HAS HAD CONSTANT LOOSE STOOLS FOR THE PAST 3 MONTHS. THIS HAS CAUSED HIM TO BE VERY WEAK. 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 HE HAS BEEN PRESCRIBED BALSALAZIDE, PREDNISONE, AND LOMOTIL. HE DENIES SIGNIFICANT IMPROVEMENT IN LOOSE STOOLS DESPITE COMPLIANCE WITH MEDICATIONS. HE HAS RECEIVED MULTIPLE INFUSIONS OF NORMAL SALINE IN THE OFFICE FOR VOLUME DEPLETION. ON ARRIVAL TO THE HOSPITAL, HIS VITALS WERE: 98.5-93-20-97%-139/65. LABS WERE OBTAINED. WBC 3.7, RBC 3.55, HGB 9.5, HCT 29.4, PLT COUNT 381, SODIUM 137, POTASSIUM 3.4, CHLORIDE 101, CARBON DIOXIDE 28.6, BUN 7, CREATININE 0.73, GLUCOSE 159, CALCIUM 8.4, TOTAL BILI 0.60, AST 9, ALT 19, ALK PHOS 53, CRP 56.40, TOTAL PROTEIN 5.6, ALBUMIN 2.3, ESR 65. A URINALYSIS WAS OBTAINED AND WAS UNREMARKABLE. STOOL STUDIES WERE COLLECTED AND WERE POSITIVE FOR OCCULT BLOOD AND WHITE CELLS. STOOL, BLOOD, AND URINE CULTURES ARE PENDING. HE WAS STARTED ON NORMAL SALINE AT 125 ML/HR, SOLU- MEDROL 125MG IV Q6H, OTBS ACHS, HUMULIN R SLIDING SCALE. WE RESUMED HIS HOME MEDICATIONS OF LIPITOR, PLAVIX, LOMOTIL, TRUSOPT EYE DROPS, XALATAN DROPS, LOPRESSOR, PERCOCET, AND K-DUR. WE WILL OBTAIN AN ABDOMINAL XRAY. OTHERWISE, WE WILL FOLLOW-UP WITH AM LABS AND CONTINUE TO MONITOR. TIME SPENT ON CLINICAL ASSESSMENT, REVIEWING LABS AND IMAGING, DECISION MAKING, AND DOCUMENTATION GREATER THAN 75 MINUTES. - Past Medical History Past Medical History: Arthritis, Coronary Artery Disease, Diabetes, Dyslipidemia, Hypertension, [place] Additional Medical History: CATARACTS, GLAUCOMA, IBS, CHRONIC BACK PAIN, MELANOMA, COLON CANCER, BASAL CELL CARCINOMA - Past Surgical History Surgical History: Appendectomy, CABG/Valve Surgery (BYPASS X 5), Joint Replacement, Lithotripsy, Other Additional Surgical History: RIGHT KNEE REPLACEMENT - Family History Family Medical History: Diabetes Mellitus, Cancer, Hypertension - Social History Does patient currently use any type of tobacco product: No Have you used tobacco products in the last 12 months: No Type of Tobacco Use: None Does any household member use tobacco: No Alcohol Use: Other Drug Use: None - Review of Systems Constitutional: Weakness Eyes: No Symptoms Reported ENT: No Symptoms Reported Respiratory: No Symptoms Reported Cardiovascular: No Symptoms Reported Gastrointestinal: See HPI, Abdominal Pain, Diarrhea. denies: Nausea, Vomiting, Melena, Hematochezia Genitourinary: No Symptoms Reported Musculoskeletal: Back Pain Skin: No Symptoms Reported Neurological: Weakness - Physical Exam Vital Signs: Vital Signs Temperature 99 F Temperature 98.0 F Pulse Rate [Right Brachial] 83 Pulse Rate [Right Brachial] 71 Respiratory Rate 18 Respiratory Rate 20 Blood Pressure [Right Arm] 153/70 Blood Pressure [Right Arm] 157/74 O2 Sat by Pulse Oximetry 95 O2 Sat by Pulse Oximetry 95 Oriented: Normal Eyes: Normal Ear: Normal Nose: Normal Throat: Normal Respiratory: Clear Throughout Cardiovascular: Normal : Normal Auscultation: Bowel Sounds: Normal Palpation: Normal Tenderness: Diffuse, Mild Skin: Decreased Turgur Musculoskeletal: Back:Lumbar Psychiatric: Normal Mood Description: Calm Affect: Normal Speech Pattern: Clear - Assessment/Plan (1) Ulcerative colitis, acute Qualifiers: Digestive disease complication type: unspecified complication Qualified Code(s): K51.919 - Ulcerative colitis, unspecified with unspecified complications Status: Acute Plan: ADMIT, NORMAL SALINE AT 125 ML/HR, SOLU-MEDROL 125MG IV Q6H, OTBS ACHS, HUMULIN R SLIDING SCALE. WE RESUMED HIS HOME MEDICATIONS OF LIPITOR, PLAVIX, LOMOTIL, TRUSOPT EYE DROPS, XALATAN DROPS, LOPRESSOR, PERCOCET, AND K-DUR. OBTAIN ABDOMINAL XRAY (2) Intractable diarrhea Status: Acute (3) Electrolyte depletion Status: Acute (4) Generalized weakness Status: Acute (5) Hypertension Qualifiers: Hypertension type: unspecified Qualified Code(s): I10 - Essential (primary) hypertension Status: Chronic Plan: RESUME LOPRESSOR (6) CAD (coronary artery disease) Qualifiers: Coronary Disease-Associated Artery/Lesion type: [place] artery [place] vs. 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: with tank terminal gauger use Diabetes mellitus complication status: with hyperglycemia Qualified Code(s): E11.65 - Type 2 diabetes mellitus with hyperglycemia; Z79.4 - director long term care (current) use of insulin Status: Chronic Plan: OTBS ACHS, HUMULIN R SLIDING SCALE (9) Glaucoma Qualifiers: Glaucoma type: unspecified Status: Chronic Plan: RESUME DROPS (10) Hyperlipidemia Qualifiers: Hyperlipidemia type: mixed hyperlipidemia Qualified Code(s): E78.2 - Mixed hyperlipidemia Status: Acute Plan: RESUME LIPITOR - Allergies Allergies/Adverse Reactions: Allergies Allergy/AdvReac Type Severity Reaction Status Date / Time No Known Drug Allergies Allergy Verified 04/22/23 10:01 - Medications Home Medications: Home Medications Medication Instructions Recorded Confirmed atorvastatin 80 mg tablet 80 mg PO QDAY 05/25/23 05/25/23 balsalazide 750 mg capsule 2,250 mg PO TID 05/25/23 05/25/23 clopidogrel 75 mg tablet 75 mg PO QDAY 05/25/23 05/25/23 diphenoxylate-atropine 2.5 1 tab PO QID PRN Diarrhea 05/25/23 05/25/23 mg-0.025 mg tablet dorzolamide 2 % eye drops 1 drp ophthalmic (eye) DAILY 05/25/23 05/25/23 gentamicin 0.1 % topical ointment 1 applic topical CONTINUOUS 05/25/23 05/25/23 latanoprost 0.005 % eye drops 1 drp ophthalmic (eye) QPM 07/28/23 07/28/23 metoprolol tartrate 50 mg tablet 25 mg PO BID 05/25/23 05/25/23 oxycodone-acetaminophen 10 mg-325 1 tab PO QID PRN 05/25/23 05/25/23 mg tablet potassium chloride 20 mEq 40 meq PO BID 05/25/23 05/25/23 tablet,extended release(part/cryst) prednisone 5 mg tablet 20 mg PO DAILY 05/25/23 05/25/23
[2023-05-26] MEDS: LIPITOR TAB 80 MG PO SCH (21:13)
[2023-05-26] MEDS: XALATAN OP SCH (21:15)
[2023-05-26] MEDS: SNACK - Diabetic Appropriate PO SCH (21:16)
[2023-05-27] MEDS: SOLU-Medrol 125 MG VIAL IVP SCH ×4 (03:36→21:02)
[2023-05-27 05:21] LABS: BASOPHILS % (AUTO) 0.2 % (0.2-1.0); HEMATOCRIT 22.9 % (42.0-54.0); HEMOGLOBIN 7.6 g/dL (13.5-18.0); LYMPHOCYTES # (AUTO) 0.4 X10^3/uL (1.3-2.9); LYMPHOCYTES % (AUTO) 17.2 % (21.0-51.0); MEAN CORPUSCULAR HGB CONC 33.1 g/dL (33.0-35.0); MEAN CORPUSCULAR VOLUME 81.5 fL (80.0-100.0); MEAN PLATELET VOLUME 6.9 fL (7.4-11.0); MONOCYTES # (AUTO) 0.2 x10^3/uL (0.3-0.8); MONOCYTES % (AUTO) 7.5 % (0.0-13.0); NEUTROPHILS # (AUTO) 1.9 x10^3/uL (2.2-4.8); NEUTROPHILS % (AUTO) 75.1 % (42.0-75.0); PLATELET COUNT 326 X10^3/uL (150.0-450.0); RED BLOOD COUNT 2.82 X10^6/uL (4.7-6.0); RED CELL DISTRIBUTION WIDTH 16.8 % (11.6-16.5); WHITE BLOOD COUNT 2.6 X10^3/uL (3.6-10.0)
[2023-05-27 05:31] LABS: ALANINE AMINOTRANSFERASE 30 Units/L (12-78); ALBUMIN 1.9 g/dL (3.4-5.0); ALKALINE PHOSPHATASE 48 Units/L (46-116); ASPARTATE AMINO TRANSFERASE 15 Units/L (15-37); BLOOD UREA NITROGEN 9 mg/dL (7-18); CALCIUM 7.9 mg/dL (8.5-10.1); CARBON DIOXIDE 26.4 mmol/L (21-32); CHLORIDE 105 mmol/L (98-107); COR CA(FOR HYPOALB) 9.6 mg/dL (8.5-10.1); COR NA(FOR HYPERGLY) 141 mmol/L (136-145); CREATININE 0.47 mg/dL (0.70-1.30); GLUCOSE 244 mg/dL (65-99); POTASSIUM 3.8 mmol/L (3.5-5.1); SODIUM 138 mmol/L (136-145); TOTAL PROTEIN 4.7 g/dL (6.4-8.2); eGFR NON BLACK RACES > 60 (>60)
[2023-05-27] MEDS: BALSALAZIDE 2250 MG PO SCH ×3 (05:51→21:06)
[2023-05-27] MEDS: NovoLIN R (or HumuLIN R) SUBCUT PRN ×4 (05:52→21:03)
[2023-05-27] MEDS: NS 1,000 ML IV 1,000 ML IV SCH ×3 (08:23→23:29)
[2023-05-27] MEDS: K-DUR TAB 20 MEQ PO SCH ×2 (08:40→21:02)
[2023-05-27] MEDS: PLAVIX PO SCH (08:41)
[2023-05-27] MEDS: LOPRESSOR TAB 50 MG PO SCH ×2 (08:42→21:02)
[2023-05-27] MEDS: TRUSOPT PLUS (OPHTH) OP SCH (08:58)
[2023-05-27] MEDS ORDERED: INFeD or DEXFERRUM 25 MG in NS 100 ML IV 100 ML IV ONE (10:00)
[2023-05-27] MEDS: CLINIMIX IV SCH ×8 (10:25→23:26)
[2023-05-27] MEDS: [UNRECOGNIZED DRUG - OTHER] IV SCH ×8 (10:25→23:26)
[2023-05-27] MEDS: MVI IV SCH ×8 (10:25→23:26)
[2023-05-27] MEDS: TPN ELECTROLYTES IV SCH ×8 (10:25→23:26)
[2023-05-27] MEDS ORDERED: INFeD or DEXFERRUM 975 MG in NS 500 ML IV 500 ML IV ONE (11:00)
[2023-05-27] MEDS: LIPITOR TAB 80 MG PO SCH (21:03)
[2023-05-27] MEDS: XALATAN OP SCH (21:06)
[2023-05-27] MEDS: SNACK - Diabetic Appropriate PO SCH (21:07)
[2023-05-28] MEDS: SOLU-Medrol 125 MG VIAL IVP SCH ×4 (04:25→20:44)
[2023-05-28 05:16] LABS: BASOPHILS % (AUTO) 0.1 % (0.2-1.0); HEMATOCRIT 24.1 % (42.0-54.0); HEMOGLOBIN 7.9 g/dL (13.5-18.0); LYMPHOCYTES # (AUTO) 0.5 X10^3/uL (1.3-2.9); LYMPHOCYTES % (AUTO) 14.6 % (21.0-51.0); MEAN CORPUSCULAR HEMOGLOBIN 26.8 pg (27.0-34.0); MEAN CORPUSCULAR HGB CONC 32.8 g/dL (33.0-35.0); MEAN CORPUSCULAR VOLUME 81.8 fL (80.0-100.0); MEAN PLATELET VOLUME 6.9 fL (7.4-11.0); MONOCYTES # (AUTO) 0.2 x10^3/uL (0.3-0.8); MONOCYTES % (AUTO) 7.2 % (0.0-13.0); NEUTROPHILS # (AUTO) 2.6 x10^3/uL (2.2-4.8); NEUTROPHILS % (AUTO) 78.1 % (42.0-75.0); PLATELET COUNT 350 X10^3/uL (150.0-450.0); RED BLOOD COUNT 2.95 X10^6/uL (4.7-6.0); WHITE BLOOD COUNT 3.3 X10^3/uL (3.6-10.0)
[2023-05-28 05:28] LABS: ALANINE AMINOTRANSFERASE 24 Units/L (12-78); ALKALINE PHOSPHATASE 54 Units/L (46-116); ASPARTATE AMINO TRANSFERASE 10 Units/L (15-37); BLOOD UREA NITROGEN 12 mg/dL (7-18); CALCIUM 7.8 mg/dL (8.5-10.1); CARBON DIOXIDE 26.9 mmol/L (21-32); CHLORIDE 103 mmol/L (98-107); COR CA(FOR HYPOALB) 9.4 mg/dL (8.5-10.1); COR NA(FOR HYPERGLY) 142 mmol/L (136-145); CREATININE 0.58 mg/dL (0.70-1.30); GLUCOSE 298 mg/dL (65-99); POTASSIUM 3.7 mmol/L (3.5-5.1); SODIUM 137 mmol/L (136-145); TOTAL PROTEIN 4.8 g/dL (6.4-8.2); eGFR NON BLACK RACES > 60 (>60)
[2023-05-28] MEDS: BALSALAZIDE 2250 MG PO SCH ×3 (05:39→21:20)
[2023-05-28] MEDS: NovoLIN R (or HumuLIN R) SUBCUT PRN ×3 (05:39→20:46)
[2023-05-28] MEDS ORDERED: CONSULT PHARMACY - POTASSIUM & MAGNESIUM XX SCH (06:00)
[2023-05-28] MEDS ORDERED: K-DUR TAB 20 MEQ PO SCH (09:00)
[2023-05-28] MEDS: TRUSOPT PLUS (OPHTH) OP SCH (09:00)
[2023-05-28] MEDS: K-DUR TAB 20 MEQ PO SCH ×2 (09:43→20:43)
[2023-05-28] MEDS: PLAVIX PO SCH (09:44)
[2023-05-28] MEDS: LOPRESSOR TAB 50 MG PO SCH ×2 (09:44→20:44)
--- NOTE | 2023-05-28 11:34 | PCM.PROG ---
Progress Note - Progress Note for Day of Date of Exam: 05/26/23 - Subjective Subjective: IS CURRENTLY OBSERVATION STATUS FOR TREATMENT OF ULCERATIVE COLITIS FLARE WITH INTRACTABLE DIARRHEA, ELECTROLYTE DEPLETION, GENERALIZED WEAKNESS. HE HAS A PMH OF CATARACTS, GLAUCOMA, CAD, HYPERLIPIDEMIA, [place], HTN, TYPE 2 DM, IRRITABLE BOWEL SYNDROME, ARTHRITIS, CHRONIC BACK PAIN, HX OF MELANOMA AND BASAL CELL CARCINOMA, COLON CANCER, APPENDECTOMY, RIGHT KNEE REPLACEMENT, LITHOTRIPSY, AND OPEN HEART SURGERY WITH BYPASS X 5. TODAY, HE IS ALERT AND ORIENTED, LYING IN BED ON MORNING ROUNDS. HE CONTINUES TO REPORT DIARRHEA. HE REPORTS HAVING 3-4 EPISODES SINCE ADMISSION. HE ALSO CONTINUES TO COMPLAIN OF WEAKNESS. ON EXAMINATION, HEART IS REGULAR IN RATE AND RHYTHM. BILATERAL LUNGS ARE CLEAR TO AUSCULTATION. ABDOMEN IS ROUND, SOFT, AND NOTED WITH DIFFUSE TENDERNESS. HYPOACTIVE BOWEL SOUNDS NOTED. GOOD MOVEMENT NOTED TO UPPER AND LOWER EXTREMITIES WITH NO EDEMA NOTED. HER VITALS THIS MORNING ARE: 99.0-83-18-95%-153/70. LABS WERE OBTAINED. WBC 2.6, RBC 3.05, HGB 8.2, HCT 24.9, PLT COUNT 331, SODIUM 138, POTASSIUM 3.7, CHLORIDE 103, BUN 7, CREATININE 0.51, GLUCOSE 269, CALCIUM 8.1, MAGNESIUM 1.8, AST 8, ALT 17, ALK PHOS 51, CRP 81.30, TOTAL PROTEIN 5.1, ALBUMIN 1.9. STOOL IS POSITIVE FOR OCCULT BLOOD AND WHITE CELLS. STOOL, BLOOD, AND URINE CULTURES ARE PENDING. AN ABDOMEN XRAY WAS OBTAINED THIS MORNING AND REVEALED: 1. Possible mild ileus. 2. Unchanged heart size upper limits of normal. HE IS CURRENTLY RECEIVING NORMAL SALINE AT 125 ML/HR, SOLU-MEDROL 125MG IV Q6H, OTBS ACHS, HUMULIN R SLIDING SCALE. WE RESUMED HIS HOME MEDICATIONS OF LIPITOR, PLAVIX, LOMOTIL, TRUSOPT EYE DROPS, XALATAN DROPS, LOPRESSOR, PERCOCET, AND K-DUR. WE WILL CONTINUE WITH CURRENT PLAN OF C ARE TODAY. OTHERWISE, WE WILL FOLLOW-UP WITH AM LABS AND CONTINUE TO MONITOR. TIME SPENT ON CLINICAL ASSESSMENT, REVIEWING LABS AND IMAGING, DECISION MAKING, AND DOCUMENTATION GREATER THAN 45 MINUTES. WE WILL CONTINUE WITH CURRENT PLAN OF CARE TODAY. - Past Medical Family Social History Past Med/Fam/Surg Hx: No changes since H&P Allergies: Allergies No Known Drug Allergies Allergy (Verified 04/22/23 10:01) - Review of Systems ROS: No change since H&P - Vital Signs and I&O's Vital Signs: Vital Signs Temperature 97.7 F Temperature 98.3 F Pulse Rate [Right Brachial] 75 Pulse Rate [Right Brachial] 65 Respiratory Rate 18 Respiratory Rate 18 Blood Pressure [Right Arm] 168/80 Blood Pressure [Right Arm] 178/78 O2 Sat by Pulse Oximetry 95 O2 Sat by Pulse Oximetry 95 Intake and Output: Intake & Output 05/25/23 05/26/23 05/27/23 05/28/23 11:59 11:59 11:59 11:59 Intake Total 1640 / 1640 4800 / 4800 940 / 940 Output Total 400 / 400 4 / 4 Balance 1240 / 1240 4796 / 4796 940 / 940 - Physical Exam Oriented: Normal Eyes: Normal Ear: Normal Nose: Normal Throat: Normal Respiratory: Normal Cardiovascular: Normal : Normal Auscultation: Bowel Sounds: Decreased Palpation: Normal Tenderness: Diffuse, Mild Skin: Decreased Turgur Musculoskeletal: Back:Lumbar Psychiatric: Normal Mood Description: Calm Affect: Normal Speech Pattern: Clear - Laboratory and Diagnostics Result Diagrams: 05/28/23 04:43 05/28/23 04:43 Labs: 05/25/23 11:00 Blood Blood Culture - Preliminary 05/25/23 10:44 Blood Blood Culture - Preliminary 05/25/23 18:16 Urine,Clean Catch Urine Culture - Final 05/25/23 16:37 Stool Stool Culture - Final 05/25/23 16:37 Stool - Final Laboratory WBC 3.3 X10^3/uL (3.6-10.0) L 05/28/23 04:43 RBC 2.95 X10^6/uL (4.7-6.0) L 05/28/23 04:43 Hgb 7.9 g/dL (13.5-18.0) L 05/28/23 04:43 Hct 24.1 % (42.0-54.0) L 05/28/23 04:43 MCV 81.8 fL (80.0-100.0) 05/28/23 04:43 MCH 26.8 pg (27.0-34.0) L 05/28/23 04:43 MCHC 32.8 g/dL (33.0-35.0) L 05/28/23 04:43 RDW 17.0 % (11.6-16.5) H 05/28/23 04:43 Plt Count 350 X10^3/uL (150.0-450.0) 05/28/23 04:43 MPV 6.9 fL (7.4-11.0) L 05/28/23 04:43 Neut % (Auto) 78.1 % (42.0-75.0) H 05/28/23 04:43 Lymph % (Auto) 14.6 % (21.0-51.0) L 05/28/23 04:43 [place] % (Auto) 7.2 % (0.0-13.0) 05/28/23 04:43 Eos % (Auto) 0.0 % (0.9-2.9) L 05/28/23 04:43 Baso % (Auto) 0.1 % (0.2-1.0) L 05/28/23 04:43 Neut # (Auto) 2.6 x10^3/uL (2.2-4.8) 05/28/23 04:43 Lymph # (Auto) 0.5 X10^3/uL (1.3-2.9) L 05/28/23 04:43 [place] # (Auto) 0.2 x10^3/uL (0.3-0.8) L 05/28/23 04:43 Eos # (Auto) 0.0 x10^3/uL (0.0-0.2) 05/28/23 04:43 Baso # (Auto) 0.0 X10^3/uL (0.0-0.1) 05/28/23 04:43 Absolute Nucleated RBC 0.5 /100WBC 05/28/23 04:43 ESR 65 MM/HOUR (0-15) H 05/25/23 10:44 Sodium 137 mmol/L (136-145) 05/28/23 04:43 Corrected Sodium 142 mmol/L (136-145) 05/28/23 04:43 Potassium 3.7 mmol/L (3.5-5.1) 05/28/23 04:43 Chloride 103 mmol/L (98-107) 05/28/23 04:43 Carbon Dioxide 26.9 mmol/L (21-32) 05/28/23 04:43 BUN 12 mg/dL (7-18) 05/28/23 04:43 Creatinine 0.58 mg/dL (0.70-1.30) L 05/28/23 04:43 Est GFR (MDRD) Af Amer > 60 (>60) 05/28/23 04:43 Est GFR (MDRD) Non-Af > 60 (>60) 05/28/23 04:43 Glucose 298 mg/dL (65-99) H 05/28/23 04:43 POC Glucose (mg/dL) 279 mg/dL (65-99) H 05/28/23 05:36 Calcium 7.8 mg/dL (8.5-10.1) L 05/28/23 04:43 Corrected Calcium 9.4 mg/dL (8.5-10.1) 05/28/23 04:43 Magnesium 1.8 mg/dL (2.0-2.9) L 05/26/23 04:56 Total Bilirubin 0.30 mg/dL (0.2-1.0) 05/28/23 04:43 AST 10 Units/L (15-37) L 05/28/23 04:43 ALT 24 Units/L (12-78) 05/28/23 04:43 Alkaline Phosphatase 54 Units/L (46-116) 05/28/23 04:43 C-Reactive Protein 15.90 mg/L (0-3.0) H 05/28/23 04:43 Total Protein 4.8 g/dL (6.4-8.2) L 05/28/23 04:43 Albumin 2.0 g/dL (3.4-5.0) L 05/28/23 04:43 Globulin 2.8 g/dL (2.5-4.5) 05/28/23 04:43 Albumin/Globulin Ratio 0.7 Ratio (1.1-2.1) L 05/28/23 04:43 Specimen Type Clean catch urine 05/25/23 18:16 Urine Color Pale yellow (YELLOW) 05/25/23 18:16 Urine Appearance Clear (CLEAR) 05/25/23 18:16 Urine pH 5.0 (5.0 - 8.0) 05/25/23 18:16 Ur Specific [place] 1.015 (1.000-1.030) 05/25/23 18:16 Urine Protein Negative (NEGATIVE) 05/25/23 18:16 Urine Glucose (UA) 4+ (NEGATIVE) 05/25/23 18:16 Urine Ketones Negative (NEGATIVE) 05/25/23 18:16 Urine Blood Negative (NEGATIVE) 05/25/23 18:16 Urine Nitrite Negative (NEGATIVE) 05/25/23 18:16 Urine Bilirubin Negative (NEGATIVE) 05/25/23 18:16 Urine Urobilinogen Normal (NORMAL) 05/25/23 18:16 Ur Leukocyte Esterase Negative (NEGATIVE) 05/25/23 18:16 Stl Occult Blood (IFOB) Positive (NEGATIVE) A 05/25/23 16:37 Stool for White Cells Positive (NEGATIVE) A 05/25/23 16:37 Stl C. diff Tox B Gene Negative (NEGATIVE) 05/25/23 16:37 Stl C. diff [id number] Presumptive negative (NEGATIVE) 05/25/23 16:37 Stool H. pylori Ag Negative (NEGATIVE) 05/25/23 16:37 Cryptosporid parvum Ag Negative (NEGATIVE) 05/25/23 16:37 Giardia lamblia Ag Negative (NEGATIVE) 05/25/23 16:37 - Plan (1) Ulcerative colitis, acute Status: Acute Qualifiers: Digestive disease complication type: unspecified complication Qualified Code(s): K51.919 - Ulcerative colitis, unspecified with unspecified complications Plan: NORMAL SALINE AT 125 ML/HR, SOLU-MEDROL 125MG IV Q6H, OTBS ACHS, HUMULIN R SLIDING SCALE. WE RESUMED HIS HOME MEDICATIONS OF LIPITOR, PLAVIX, LOMOTIL, TRUSOPT EYE DROPS, XALATAN DROPS, LOPRESSOR, PERCOCET, AND K-DUR. (2) Ileus Status: Acute (3) Intractable diarrhea Status: Acute (4) Electrolyte depletion Status: Acute (5) Generalized weakness Status: Acute (6) Hypertension Status: Chronic Qualifiers: Hypertension type: unspecified Qualified Code(s): I10 - Essential (primary) hypertension Plan: RESUME LOPRESSOR (7) CAD (coronary artery disease) Status: Chronic Qualifiers: Coronary Disease-Associated Artery/Lesion type: [place] artery [place] vs. 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
--- NOTE | 2023-05-28 12:27 | PCM.PROG ---
Progress Note - Progress Note for Day of Date of Exam: 05/27/23 - Subjective Subjective: WAS CHANGED TO INPATIENT STATUS TODAY FOR TREATMENT OF ULCERATIVE COLITIS FLARE WITH INTRACTABLE DIARRHEA, ILEUS, ELECTROLYTE DEPLETION, GENERALIZED WEAKNESS. HE HAS A PMH OF CATARACTS, GLAUCOMA, CAD, HYPERLIPIDEMIA, [place], HTN, TYPE 2 DM, IRRITABLE BOWEL SYNDROME, ARTHRITIS, CHRONIC BACK PAIN, HX OF MELANOMA AND BASAL CELL CARCINOMA, COLON CANCER, APPENDECTOMY, RIGHT KNEE REPLACEMENT, LITHOTRIPSY, AND OPEN HEART SURGERY WITH BYPASS X 5. TODAY, HE IS ALERT AND ORIENTED, LYING IN BED ON MORNING ROUNDS. HE CONTINUES TO REPORT DIARRHEA. HE REPORTS HAVING 3-4 EPISODES PER DAY SINCE ADMISSION. HE ALSO CONTINUES TO COMPLAIN OF WEAKNESS. ON EXAMINATION, HEART IS REGULAR IN RATE AND RHYTHM. BILATERAL LUNGS ARE CLEAR TO AUSCULTATION. ABDOMEN IS ROUND, SOFT, AND NOTED WITH DIFFUSE TENDERNESS. HYPOACTIVE BOWEL SOUNDS NOTED. GOOD MOVEMENT NOTED TO UPPER AND LOWER EXTREMITIES WITH NO EDEMA NOTED. HER VITALS THIS MORNING ARE: 97.9-85-20-95%-154/64. LABS WERE OBTAINED. WBC 3.3, RBC 2.95, HGB 7.9, HCT 24.1, PLT COUNT 350, SODIUM 137, POTASSIUM 3.7, CHLORIDE 103, BUN 12, CREATININE 0.58, GLUCOSE 298, CALCIUM 7.8, AST 10, ALT 24, ALK PHOS 54, CRP 15.90, TOTAL PROTEIN 4.8, ALBUMIN 2.0. STOOL IS POSITIVE FOR OCCULT BLOOD AND WHITE CELLS. STOOL, BLOOD, AND URINE CULTURES ARE PENDING. HE IS CURRENTLY RECEIVING NORMAL SALINE AT 125 ML/HR, SOLU-MEDROL 125MG IV Q6H, OTBS ACHS, HUMULIN R SLIDING SCALE. WE RESUMED HIS HOME MEDICATIONS OF LIPITOR, PLAVIX, LOMOTIL, TRUSOPT EYE DROPS, XALATAN DROPS, LOPRESSOR, PERCOCET, AND K-DUR. WE WILL DECREASE HIS IV FLUIDS TO 50 ML/HR AND START TPN AT 75 ML/HR. OTHERWISE, WE WILL CONTINUE WITH CURRENT PLAN OF CARE TODAY. WE WILL FOLLOW-UP WITH AM LABS AND CONTINUE TO MONITOR. TIME SPENT ON CLINICAL ASSESSMENT, REVIEWING LABS AND IMAGING, DECISION MAKING, AND DOCUMENTATION GREATER THAN 45 MINUTES. WE WILL CONTINUE WITH CURRENT PLAN OF CARE TODAY. - Past Medical Family Social History Past Med/Fam/Surg Hx: No changes since H&P Allergies: Allergies No Known Drug Allergies Allergy (Verified 04/22/23 10:01) - Review of Systems ROS: No change since H&P - Vital Signs and I&O's Vital Signs: Vital Signs Temperature 97.7 F Pulse Rate [Right Brachial] 75 Respiratory Rate 18 Blood Pressure [Right Arm] 168/80 O2 Sat by Pulse Oximetry 95 Intake and Output: Intake & Output 05/26/23 05/27/23 05/28/23 05/29/23 11:59 11:59 11:59 11:59 Intake Total 1640 / 1640 4800 / 4800 940 / 940 Output Total 400 / 400 4 / 4 Balance 1240 / 1240 4796 / 4796 940 / 940 - Physical Exam Oriented: Normal Eyes: Normal Ear: Normal Nose: Normal Throat: Normal Respiratory: Normal Cardiovascular: Normal : Normal Auscultation: Bowel Sounds: Decreased Palpation: Normal Tenderness: Diffuse, Mild Skin: Decreased Turgur Musculoskeletal: Back:Lumbar Psychiatric: Normal Mood Description: Calm Affect: Normal Speech Pattern: Clear - Laboratory and Diagnostics Result Diagrams: 05/28/23 04:43 05/28/23 04:43 Labs: 05/25/23 11:00 Blood Blood Culture - Preliminary 05/25/23 10:44 Blood Blood Culture - Preliminary 05/25/23 18:16 Urine,Clean Catch Urine Culture - Final 05/25/23 16:37 Stool Stool Culture - Final 05/25/23 16:37 Stool - Final Laboratory WBC 3.3 X10^3/uL (3.6-10.0) L 05/28/23 04:43 RBC 2.95 X10^6/uL (4.7-6.0) L 05/28/23 04:43 Hgb 7.9 g/dL (13.5-18.0) L 05/28/23 04:43 Hct 24.1 % (42.0-54.0) L 05/28/23 04:43 MCV 81.8 fL (80.0-100.0) 05/28/23 04:43 MCH 26.8 pg (27.0-34.0) L 05/28/23 04:43 MCHC 32.8 g/dL (33.0-35.0) L 05/28/23 04:43 RDW 17.0 % (11.6-16.5) H 05/28/23 04:43 Plt Count 350 X10^3/uL (150.0-450.0) 05/28/23 04:43 MPV 6.9 fL (7.4-11.0) L 05/28/23 04:43 Neut % (Auto) 78.1 % (42.0-75.0) H 05/28/23 04:43 Lymph % (Auto) 14.6 % (21.0-51.0) L 05/28/23 04:43 [place] % (Auto) 7.2 % (0.0-13.0) 05/28/23 04:43 Eos % (Auto) 0.0 % (0.9-2.9) L 05/28/23 04:43 Baso % (Auto) 0.1 % (0.2-1.0) L 05/28/23 04:43 Neut # (Auto) 2.6 x10^3/uL (2.2-4.8) 05/28/23 04:43 Lymph # (Auto) 0.5 X10^3/uL (1.3-2.9) L 05/28/23 04:43 [place] # (Auto) 0.2 x10^3/uL (0.3-0.8) L 05/28/23 04:43 Eos # (Auto) 0.0 x10^3/uL (0.0-0.2) 05/28/23 04:43 Baso # (Auto) 0.0 X10^3/uL (0.0-0.1) 05/28/23 04:43 Absolute Nucleated RBC 0.5 /100WBC 05/28/23 04:43 ESR 65 MM/HOUR (0-15) H 05/25/23 10:44 Sodium 137 mmol/L (136-145) 05/28/23 04:43 Corrected Sodium 142 mmol/L (136-145) 05/28/23 04:43 Potassium 3.7 mmol/L (3.5-5.1) 05/28/23 04:43 Chloride 103 mmol/L (98-107) 05/28/23 04:43 Carbon Dioxide 26.9 mmol/L (21-32) 05/28/23 04:43 BUN 12 mg/dL (7-18) 05/28/23 04:43 Creatinine 0.58 mg/dL (0.70-1.30) L 05/28/23 04:43 Est GFR (MDRD) Af Amer > 60 (>60) 05/28/23 04:43 Est GFR (MDRD) Non-Af > 60 (>60) 05/28/23 04:43 Glucose 298 mg/dL (65-99) H 05/28/23 04:43 POC Glucose (mg/dL) 279 mg/dL (65-99) H 05/28/23 05:36 Calcium 7.8 mg/dL (8.5-10.1) L 05/28/23 04:43 Corrected Calcium 9.4 mg/dL (8.5-10.1) 05/28/23 04:43 Magnesium 1.8 mg/dL (2.0-2.9) L 05/26/23 04:56 Total Bilirubin 0.30 mg/dL (0.2-1.0) 05/28/23 04:43 AST 10 Units/L (15-37) L 05/28/23 04:43 ALT 24 Units/L (12-78) 05/28/23 04:43 Alkaline Phosphatase 54 Units/L (46-116) 05/28/23 04:43 C-Reactive Protein 15.90 mg/L (0-3.0) H 05/28/23 04:43 Total Protein 4.8 g/dL (6.4-8.2) L 05/28/23 04:43 Albumin 2.0 g/dL (3.4-5.0) L 05/28/23 04:43 Globulin 2.8 g/dL (2.5-4.5) 05/28/23 04:43 Albumin/Globulin Ratio 0.7 Ratio (1.1-2.1) L 05/28/23 04:43 Specimen Type Clean catch urine 05/25/23 18:16 Urine Color Pale yellow (YELLOW) 05/25/23 18:16 Urine Appearance Clear (CLEAR) 05/25/23 18:16 Urine pH 5.0 (5.0 - 8.0) 05/25/23 18:16 Ur Specific [place] 1.015 (1.000-1.030) 05/25/23 18:16 Urine Protein Negative (NEGATIVE) 05/25/23 18:16 Urine Glucose (UA) 4+ (NEGATIVE) 05/25/23 18:16 Urine Ketones Negative (NEGATIVE) 05/25/23 18:16 Urine Blood Negative (NEGATIVE) 05/25/23 18:16 Urine Nitrite Negative (NEGATIVE) 05/25/23 18:16 Urine Bilirubin Negative (NEGATIVE) 05/25/23 18:16 Urine Urobilinogen Normal (NORMAL) 05/25/23 18:16 Ur Leukocyte Esterase Negative (NEGATIVE) 05/25/23 18:16 Stl Occult Blood (IFOB) Positive (NEGATIVE) A 05/25/23 16:37 Stool for White Cells Positive (NEGATIVE) A 05/25/23 16:37 Stl C. diff Tox B Gene Negative (NEGATIVE) 05/25/23 16:37 Stl C. diff [id number] Presumptive negative (NEGATIVE) 05/25/23 16:37 Stool H. pylori Ag Negative (NEGATIVE) 05/25/23 16:37 Cryptosporid parvum Ag Negative (NEGATIVE) 05/25/23 16:37 Giardia lamblia Ag Negative (NEGATIVE) 05/25/23 16:37 - Plan (1) Ulcerative colitis, acute Status: Acute Qualifiers: Digestive disease complication type: unspecified complication Qualified Code(s): K51.919 - Ulcerative colitis, unspecified with unspecified complications Plan: NORMAL SALINE AT 50 ML/HR, TPN AT 75 ML/HR, SOLU-MEDROL 125MG IV Q6H, OTBS ACHS, HUMULIN R SLIDING SCALE. WE RESUMED HIS HOME MEDICATIONS OF LIPITOR, PLAVIX, LOMOTIL, TRUSOPT EYE DROPS, XALATAN DROPS, LOPRESSOR, PERCOCET, AND K- DUR. 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
[2023-05-28] MEDS: [UNRECOGNIZED DRUG - OTHER] IV SCH ×6 (13:55)
[2023-05-28] MEDS: MVI IV SCH ×6 (13:55)
[2023-05-28] MEDS: CLINIMIX IV SCH ×6 (13:55)
[2023-05-28] MEDS: TPN ELECTROLYTES IV SCH ×6 (13:55)
[2023-05-28] MEDS: NS 1,000 ML IV 1,000 ML IV SCH (17:44)
--- NOTE | 2023-05-28 18:48 | PCM.PROG ---
Progress Note - Progress Note for Day of Date of Exam: 05/28/23 - Subjective Subjective: IS CURRENTLY INPATIENT STATUS TODAY FOR TREATMENT OF ULCERATIVE COLITIS FLARE WITH INTRACTABLE DIARRHEA, ILEUS, ELECTROLYTE DEPLETION, GENERALIZED WEAKNESS. HE HAS A PMH OF CATARACTS, GLAUCOMA, CAD, HYPERLIPIDEMIA, NC, HTN, TYPE 2 DM, IRRITABLE BOWEL SYNDROME, ARTHRITIS, CHRONIC BACK PAIN, HX OF MELANOMA AND BASAL CELL CARCINOMA, COLON CANCER, APPENDECTOMY, RIGHT KNEE REPLACEMENT, LITHOTRIPSY, AND OPEN HEART SURGERY WITH BYPASS X 5. TODAY, HE IS ALERT AND ORIENTED, LYING IN BED ON MORNING ROUNDS. HE CONTINUES TO REPORT DIARRHEA, BUT REPORTS DECREASE IN EPISODES SINCE ADMISSION. HE CONTINUES TO COMPLAIN OF GENERALIZED WEAKNESS. ON EXAMINATION, HEART IS REGULAR IN RATE AND RHYTHM. BILATERAL LUNGS ARE CLEAR TO AUSCULTATION. ABDOMEN IS ROUND, SOFT, AND NOTED WITH DIFFUSE TENDERNESS. HYPOACTIVE BOWEL SOUNDS NOTED. GOOD MOVEMENT NOTED TO UPPER AND LOWER EXTREMITIES WITH NO EDEMA NOTED. HER VITALS THIS MORNING ARE: 97.7-75-18-95%-168/80. LABS WERE OBTAINED. WBC 3.3, RBC 2.95, HGB 7.9, HCT 24.1, PLT COUNT 350, SODIUM 137, POTASSIUM 3.7, CHLORIDE 103, BUN 12, CREATININE 0.58, GLUCOSE 298, CALCIUM 7.8, AST 10, ALT 24, ALK PHOS 54, CRP 15.90, TOTAL PROTEIN 4.8, ALBUMIN 2.0. STOOL IS POSITIVE FOR OCCULT BLOOD AND WHITE CELLS. STOOL, BLOOD, AND URINE CULTURES ARE PENDING. HE IS CURRENTLY RECEIVING NORMAL SALINE AT 50 ML/HR, TPN AT 75 ML/HR, SOLU-MEDROL 125MG IV Q6H, OTBS ACHS, HUMULIN R SLIDING SCALE. WE RESUMED HIS HOME MEDICATIONS OF LIPITOR, PLAVIX, LOMOTIL, TRUSOPT EYE DROPS, XALATAN DROPS, LOPRESSOR, PERCOCET, AND K- DUR. WE WILL CONTINUE WITH CURRENT PLAN OF CARE TODAY. WE WILL CONSULT , DIRECTOR DATA. OTHERWISE, WE WILL FOLLOW-UP WITH AM LABS AND CONTINUE TO MONITOR. TIME SPENT ON CLINICAL ASSESSMENT, REVIEWING LABS AND IMAGING, DECISION MAKING, AND DOCUMENTATION GREATER THAN 45 MINUTES. WE WILL CONTINUE WITH CURRENT PLAN OF CARE TODAY. - Past Medical Family Social History Past Med/Fam/Surg Hx: No changes since H&P Allergies: Allergies No Known Drug Allergies Allergy (Verified 04/22/23 10:01) - Review of Systems ROS: No change since H&P - Vital Signs and I&O's Vital Signs: Vital Signs Temperature 97.5 F Temperature 97.5 F Pulse Rate [Right Brachial] 87 Pulse Rate [Right Brachial] 67 Respiratory Rate 18 Respiratory Rate 18 Blood Pressure [Right Arm] 167/77 Blood Pressure [Right Arm] 168/80 O2 Sat by Pulse Oximetry 97 O2 Sat by Pulse Oximetry 95 Intake and Output: Intake & Output 05/26/23 05/27/23 05/28/23 05/29/23 11:59 11:59 11:59 11:59 Intake Total 1640 / 1640 4800 / 4800 940 / 940 1220 / 1220 Output Total 400 / 400 4 / 4 Balance 1240 / 1240 4796 / 4796 940 / 940 1220 / 1220 - Physical Exam Oriented: Normal Eyes: Normal Ear: Normal Nose: Normal Throat: Normal Respiratory: Normal Cardiovascular: Normal : Normal Auscultation: Bowel Sounds: Decreased Tenderness: Diffuse, Mild Skin: Decreased Turgur Musculoskeletal: Back:Lumbar Psychiatric: Normal Mood Description: Calm Affect: Normal Speech Pattern: Clear - Laboratory and Diagnostics Result Diagrams: 05/28/23 04:43 05/28/23 04:43 Labs: 05/25/23 11:00 Blood Blood Culture - Preliminary 05/25/23 10:44 Blood Blood Culture - Preliminary 05/25/23 18:16 Urine,Clean Catch Urine Culture - Final 05/25/23 16:37 Stool Stool Culture - Final 05/25/23 16:37 Stool - Final Laboratory WBC 3.3 X10^3/uL (3.6-10.0) L 05/28/23 04:43 RBC 2.95 X10^6/uL (4.7-6.0) L 05/28/23 04:43 Hgb 7.9 g/dL (13.5-18.0) L 05/28/23 04:43 Hct 24.1 % (42.0-54.0) L 05/28/23 04:43 MCV 81.8 fL (80.0-100.0) 05/28/23 04:43 MCH 26.8 pg (27.0-34.0) L 05/28/23 04:43 MCHC 32.8 g/dL (33.0-35.0) L 05/28/23 04:43 RDW 17.0 % (11.6-16.5) H 05/28/23 04:43 Plt Count 350 X10^3/uL (150.0-450.0) 05/28/23 04:43 MPV 6.9 fL (7.4-11.0) L 05/28/23 04:43 Neut % (Auto) 78.1 % (42.0-75.0) H 05/28/23 04:43 Lymph % (Auto) 14.6 % (21.0-51.0) L 05/28/23 04:43 Nolan % (Auto) 7.2 % (0.0-13.0) 05/28/23 04:43 Eos % (Auto) 0.0 % (0.9-2.9) L 05/28/23 04:43 Baso % (Auto) 0.1 % (0.2-1.0) L 05/28/23 04:43 Neut # (Auto) 2.6 x10^3/uL (2.2-4.8) 05/28/23 04:43 Lymph # (Auto) 0.5 X10^3/uL (1.3-2.9) L 05/28/23 04:43 Nolan # (Auto) 0.2 x10^3/uL (0.3-0.8) L 05/28/23 04:43 Eos # (Auto) 0.0 x10^3/uL (0.0-0.2) 05/28/23 04:43 Baso # (Auto) 0.0 X10^3/uL (0.0-0.1) 05/28/23 04:43 Absolute Nucleated RBC 0.5 /100WBC 05/28/23 04:43 ESR 65 MM/HOUR (0-15) H 05/25/23 10:44 Sodium 137 mmol/L (136-145) 05/28/23 04:43 Corrected Sodium 142 mmol/L (136-145) 05/28/23 04:43 Potassium 3.7 mmol/L (3.5-5.1) 05/28/23 04:43 Chloride 103 mmol/L (98-107) 05/28/23 04:43 Carbon Dioxide 26.9 mmol/L (21-32) 05/28/23 04:43 BUN 12 mg/dL (7-18) 05/28/23 04:43 Creatinine 0.58 mg/dL (0.70-1.30) L 05/28/23 04:43 Est GFR (MDRD) Af Amer > 60 (>60) 05/28/23 04:43 Est GFR (MDRD) Non-Af > 60 (>60) 05/28/23 04:43 Glucose 298 mg/dL (65-99) H 05/28/23 04:43 POC Glucose (mg/dL) 330 mg/dL (65-99) H 05/28/23 17:36 Calcium 7.8 mg/dL (8.5-10.1) L 05/28/23 04:43 Corrected Calcium 9.4 mg/dL (8.5-10.1) 05/28/23 04:43 Magnesium 1.8 mg/dL (2.0-2.9) L 05/26/23 04:56 Total Bilirubin 0.30 mg/dL (0.2-1.0) 05/28/23 04:43 AST 10 Units/L (15-37) L 05/28/23 04:43 ALT 24 Units/L (12-78) 05/28/23 04:43 Alkaline Phosphatase 54 Units/L (46-116) 05/28/23 04:43 C-Reactive Protein 15.90 mg/L (0-3.0) H 05/28/23 04:43 Total Protein 4.8 g/dL (6.4-8.2) L 05/28/23 04:43 Albumin 2.0 g/dL (3.4-5.0) L 05/28/23 04:43 Globulin 2.8 g/dL (2.5-4.5) 05/28/23 04:43 Albumin/Globulin Ratio 0.7 Ratio (1.1-2.1) L 05/28/23 04:43 Specimen Type Clean catch urine 05/25/23 18:16 Urine Color Pale yellow (YELLOW) 05/25/23 18:16 Urine Appearance Clear (CLEAR) 05/25/23 18:16 Urine pH 5.0 (5.0 - 8.0) 05/25/23 18:16 Ur Specific [place] 1.015 (1.000-1.030) 05/25/23 18:16 Urine Protein Negative (NEGATIVE) 05/25/23 18:16 Urine Glucose (UA) 4+ (NEGATIVE) 05/25/23 18:16 Urine Ketones Negative (NEGATIVE) 05/25/23 18:16 Urine Blood Negative (NEGATIVE) 05/25/23 18:16 Urine Nitrite Negative (NEGATIVE) 05/25/23 18:16 Urine Bilirubin Negative (NEGATIVE) 05/25/23 18:16 Urine Urobilinogen Normal (NORMAL) 05/25/23 18:16 Ur Leukocyte Esterase Negative (NEGATIVE) 05/25/23 18:16 Stl Occult Blood (IFOB) Positive (NEGATIVE) A 05/25/23 16:37 Stool for White Cells Positive (NEGATIVE) A 05/25/23 16:37 Stl C. diff Tox B Gene Negative (NEGATIVE) 05/25/23 16:37 Stl C. diff [id number] Presumptive negative (NEGATIVE) 05/25/23 16:37 Stool H. pylori Ag Negative (NEGATIVE) 05/25/23 16:37 Cryptosporid parvum Ag Negative (NEGATIVE) 05/25/23 16:37 Giardia lamblia Ag Negative (NEGATIVE) 05/25/23 16:37 - Plan (1) Ulcerative colitis, acute Status: Acute Qualifiers: Digestive disease complication type: unspecified complication Qualified Code(s): K51.919 - Ulcerative colitis, unspecified with unspecified complicat ions Plan: NORMAL SALINE AT 50 ML/HR, TPN AT 75 ML/HR, SOLU-MEDROL 125MG IV Q6H, OTBS ACHS, HUMULIN R SLIDING SCALE. WE RESUMED HIS HOME MEDICATIONS OF LIPITOR, PLAVIX, LOMOTIL, TRUSOPT EYE DROPS, XALATAN DROPS, LOPRESSOR, PERCOCET, AND K- DUR. CONSULT GI (2) Ileus Status: Acute (3) Intractable diarrhea Status: Acute (4) Electrolyte depletion Status: Acute (5) Generalized weakness Status: Acute (6) Hypertension Status: Chronic Qualifiers: Hypertension type: unspecified Qualified Code(s): I10 - Essential (primary) hypertension Plan: RESUME LOPRESSOR (7) CAD (coronary artery disease) Status: Chronic Qualifiers: Coronary Disease-Associated Artery/Lesion type: [place] artery [place] vs. 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
[2023-05-28] MEDS: LIPITOR TAB 80 MG PO SCH (20:44)
[2023-05-28] MEDS: SNACK - Diabetic Appropriate PO SCH (21:19)
[2023-05-28] MEDS: XALATAN OP SCH (21:20)
[2023-05-29 00:03] VITALS: O2SAT 96
[2023-05-29] MEDS: CLINIMIX IV SCH ×6 (00:19)
[2023-05-29] MEDS: TPN ELECTROLYTES IV SCH ×6 (00:19)
[2023-05-29] MEDS: MVI IV SCH ×6 (00:19)
[2023-05-29] MEDS: [UNRECOGNIZED DRUG - OTHER] IV SCH ×6 (00:19)
[2023-05-29] MEDS: SOLU-Medrol 125 MG VIAL IVP SCH ×2 (02:54→08:57)
[2023-05-29] MEDS: NS 1,000 ML IV 1,000 ML IV SCH (05:25)
[2023-05-29] MEDS: BALSALAZIDE 2250 MG PO SCH (05:32)
[2023-05-29 05:52] VITALS: RESP 20
[2023-05-29] MEDS: NovoLIN R (or HumuLIN R) SUBCUT PRN (05:56)
[2023-05-29 06:15] LABS: BLOOD UREA NITROGEN 14 mg/dL (7-18); CALCIUM 8.7 mg/dL (8.5-10.1); CARBON DIOXIDE 27.2 mmol/L (21-32); CHLORIDE 101 mmol/L (98-107); COR NA(FOR HYPERGLY) 141 mmol/L (136-145); CREATININE 0.63 mg/dL (0.70-1.30); GLUCOSE 257 mg/dL (65-99); POTASSIUM 4.1 mmol/L (3.5-5.1); SODIUM 137 mmol/L (136-145); eGFR NON BLACK RACES > 60 (>60)
[2023-05-29 06:17] LABS: BASOPHILS % (AUTO) 0.1 % (0.2-1.0); HEMATOCRIT 28.9 % (42.0-54.0); HEMOGLOBIN 9.5 g/dL (13.5-18.0); LYMPHOCYTES # (AUTO) 0.7 X10^3/uL (1.3-2.9); LYMPHOCYTES % (AUTO) 14.3 % (21.0-51.0); MEAN CORPUSCULAR VOLUME 81.8 fL (80.0-100.0); MONOCYTES # (AUTO) 0.2 x10^3/uL (0.3-0.8); MONOCYTES % (AUTO) 4.3 % (0.0-13.0); NEUTROPHILS # (AUTO) 3.9 x10^3/uL (2.2-4.8); NEUTROPHILS % (AUTO) 81.3 % (42.0-75.0); PLATELET COUNT 427 X10^3/uL (150.0-450.0); RED BLOOD COUNT 3.53 X10^6/uL (4.7-6.0); WHITE BLOOD COUNT 4.8 X10^3/uL (3.6-10.0)
[2023-05-29 06:42] LABS: ALANINE AMINOTRANSFERASE 28 Units/L (12-78); ALBUMIN 2.4 g/dL (3.4-5.0); ALKALINE PHOSPHATASE 58 Units/L (46-116); ASPARTATE AMINO TRANSFERASE 10 Units/L (15-37); MAGNESIUM 2.4 mg/dL (2.0-2.9); TOTAL PROTEIN 5.5 g/dL (6.4-8.2)
[2023-05-29 08:31] VITALS: BP 171/75; PULSE 80; TEMP 97.3
[2023-05-29] MEDS: K-DUR TAB 20 MEQ PO SCH (09:00)
[2023-05-29] MEDS: LOPRESSOR TAB 50 MG PO SCH (09:00)
[2023-05-29] MEDS: TRUSOPT PLUS (OPHTH) OP SCH (09:00)
[2023-05-29] MEDS: PLAVIX PO SCH (09:00)
--- NOTE | 2023-05-29 19:33 | DR.CONSULT ---
<Haley Farias - Last Filed: 05/29/23 11:24> Consult - Consultation for Day of: Date: 05/29/23 (GI) - Chief Complaint Chief Complaint: Patient is a 67 y/o who is referred for ulcerative colitis flare. Patient has complaints of diarrhea, that has been ongoing for 2-3 months. Patient reports symptoms have not improved since starting Balsalazide 3-4 weeks ago. Patient was hospitalized in [place] March 2023, at which time he had a flex sig done, which showed active colitis. Patient was diagnosed with ulcerative colitis and colon cancer in 2019. He underwent a colon resection for treatment of colon cancer. Patient was recently started on Balsalazide and Prednisone after a hospitalization at [facility] 04/30/23. PMH OF CATARACTS, GLAUCOMA, CAD, HYPERLIPIDEMIA, PA, HTN, TYPE 2 DM, IRRITABLE BOWEL SYNDROME, ARTHRITIS, CHRONIC BACK PAIN, HX OF MELANOMA AND BASAL CELL CARCINOMA, COLON CANCER, APPENDECTOMY, RIGHT KNEE REPLACEMENT, LITHOTRIPSY, AND OPEN HEART SURGERY WITH BYPASS X 5. HE PRESENTED A DIRECT ADMISSION FOR FURTHER EVALUATION AND TREATMENT OF ULCERATIVE COLITIS FLARE, INTRACTABLE DIARRHEA, AND ELECTROLITE DEPLETION. PATIENT REPORTS THAT HE HAS HAD CONSTANT LOOSE STOOLS FOR THE PAST 3 MONTHS. THIS HAS CAUSED HIM TO BE VERY WEAK. HE HAS BEEN EVALUATED BY , VISUAL C DEVELOPER. HE HAS BEEN PRESCRIBED BALSALAZIDE, PREDNISONE, AND LOMOTIL. HE DENIES SIGNIFICANT IMPROVEMENT IN LOOSE STOOLS DESPITE COMPLIANCE WITH MEDI CATIONS. HE HAS RECEIVED MULTIPLE INFUSIONS OF NORMAL SALINE IN THE OFFICE FOR VOLUME DEPLETION. ON ARRIVAL TO THE HOSPITAL, HIS VITALS WERE: 98.5-93-20-97%-139/65. LABS WERE OBTAINED. WBC 3.7, RBC 3.55, HGB 9.5, HCT 29.4, PLT COUNT 381, SODIUM 137, POTASSIUM 3.4, CHLORIDE 101, CARBON DIOXIDE 28.6, BUN 7, CREATININE 0.73, GLUCOSE 159, CALCIUM 8.4, TOTAL BILI 0.60, AST 9, ALT 19, ALK PHOS 53, CRP 56.40, TOTAL PROTEIN 5.6, ALBUMIN 2.3, ESR 65. A URINALYSIS WAS OBTAINED AND WAS UNREMARKABLE. STOOL STUDIES WERE COLLECTED AND WERE POSITIVE FOR OCCULT BLOOD AND WHITE CELLS. - Allergies Allergies/Adverse Reactions: Allergies Allergy/AdvReac Type Severity Reaction Status Date / Time No Known Drug Allergies Allergy Verified 04/22/23 10:01 - Past Medical History Past Medical History: Arthritis, Coronary Artery Disease, Diabetes, Dyslipidemia, Hypertension, PA Additional Medical History: CATARACTS, GLAUCOMA, IBS, CHRONIC BACK PAIN, MELANOMA, COLON CANCER, BASAL CELL CARCINOMA - Past Surgical History Surgical History: Appendectomy, CABG/Valve Surgery (BYPASS X 5), Joint Replacement, Lithotripsy, Other Additional Surgical History: RIGHT KNEE REPLACEMENT - Family History Family Medical History: Diabetes Mellitus, Cancer, Hypertension - Social History Does patient currently use any type of tobacco product: No Have you used tobacco products in the last 12 months: No Type of Tobacco Use: None Does any household member use tobacco: No Alcohol Use: Other Drug Use: None - Medications Home Medications: No Known Drug Allergies Allergy (Verified 04/22/23 10:01) CONTINUE taking the following medications atorvastatin 80 mg tablet 80 mg PO QDAY 05/25/23 [History] balsalazide 750 mg capsule 2,250 mg PO TID 05/25/23 [History] clopidogrel 75 mg tablet 75 mg PO QDAY 05/25/23 [History] diphenoxylate-atropine 2.5 mg-0.025 mg tablet 1 tab PO QID PRN Diarrhea 05/25/23 [History] dorzolamide 2 % eye drops 1 drp ophthalmic (eye) DAILY 05/25/23 [History] gentamicin 0.1 % topical ointment 1 applic topical CONTINUOUS 05/25/23 [History] latanoprost 0.005 % eye drops 1 drp ophthalmic (eye) QPM 05/25/23 [History] metoprolol tartrate 50 mg tablet 25 mg PO BID 05/25/23 [History] oxycodone-acetaminophen 10 mg-325 mg tablet 1 tab PO QID PRN 05/25/23 [History] potassium chloride 20 mEq tablet,extended release(part/cryst) 40 meq PO BID 05/25/23 [History] prednisone 5 mg tablet 20 mg PO DAILY 05/25/23 [History] New Prescriptions lorazepam 0.5 mg tablet 0.5 mg PO BID PRN #60 tabs 05/29/23 [Rx] prednisone 20 mg tablet 20 mg PO BID #60 tabs 05/29/23 [Rx] - Review of Systems Constitutional: No Symptoms Reported. denies: See HPI, Fever, Chills, Sweats, Weakness, Malaise, Other Eyes: No Symptoms Reported. denies: See HPI, Pain, Vision Change, Conjunctivae Inflammation, Eyelid Inflammation, Redness, Other ENT: No Symptoms Reported. denies: See HPI, Ear Pain, Ear Discharge, Nose Pain, Nose Discharge, Nose Congestion, Mouth Pain, Mouth Swelling, Throat Pain, Throat Swelling, Other Respiratory: No Symptoms Reported. denies: See HPI, Cough, Dry, Shortness of Breath, Hemoptysis, SOB with Excertion, Pleuritic Pain, Sputum, Wheezing, Other Cardiovascular: No Symptoms Reported. denies: Chest Pain, See HPI, Palpitations, Orthopnea, Paroxysmal Noc. Dyspnea, Edema, Light Headedness, Other Genitourinary: See HPI. denies: No Symptoms Reported, Dysuria, Frequency, Incontinence, Hematuria, Retention, Other Musculoskeletal: No Symptoms Reported. denies: See HPI, Shoulder Pain, Arm Pain, Back Pain, Hand Pain, Leg Pain, Foot Pain, Neck Pain, Other Skin: No Symptoms Reported. denies: See HPI, Rash, Lesions, Jaundice, Bruising, Wound, Ecchymosis, Other Neurological: No Symptoms Reported. denies: See HPI, Weakness, Numbness, Incoordination, Change in Speech, Confusion, Seizures, Other - Physical Exam Vital Signs: Vital Signs Temperature 97.3 F Temperature 97.7 F Pulse Rate [Right Brachial] 80 Pulse Rate [Right Brachial] 86 Respiratory Rate 20 Respiratory Rate 20 Blood Pressure [Right Arm] 171/75 Blood Pressure [Right Arm] 173/78 O2 Sat by Pulse Oximetry 96 O2 Sat by Pulse Oximetry 96 Oriented: Normal. negative: Time, Person, Place, Not Oriented, Unable to test, Other Eyes: negative: Normal, Blurred Vision, Diplopia, Discharge, Pain, Redness, Photophobia, Other Ear: negative: Normal, Right, Left, Swelling, Ecchymosis, Hemotypanum, Abrasion, Laceration Nose: negative: Normal, Injected, Discharge, Blood, Other Throat: negative: Normal, Tonsillar Hypertrophy, Red, Exudate, Dry, Other Respiratory: Clear Throughout. negative: Diminished Throughout, Rhonchi Throughout, Rales Throughout, Wheezes Throughout, RUL Clear, RML Clear, RLL Clear, RIKA Clear, LML Clear, LLL Clear, RUL Diminished, RML Diminished, RLL Diminished, RIKA Diminished, LML Diminished, LLL Diminished, RUL Absent, RML Absent, RLL Absent, RIKA Absent, LML Absent, LLL Absent, RUL Rhonchi, RML Rhonchi, RLL Rhonchi, RIKA Rhonchi, LML Rhonchi, LLL Rhonchi, RUL Insp. Wheeze, RML Insp. Wheeze, RLL Insp. Wheeze, RIKA Insp.Wheeze, LML Insp.Wheeze, LLL Insp.Wheeze, RUL Exp. Wheeze, RML Exp. Wheeze, RLL Exp. Wheeze, RIKA Exp. Wheeze, LML Exp. Wheeze, LLL Exp. Wheeze, RUL Rales, RML Rales, RLL Rales, RIKA Rales, LML Rales, LLL Rales, RUL Rub, RML Rub, RLL Rub, RIKA Rub, LML Rub, LLL Rub, RUL Squeak, RML Squeak, RLL Squeak, RIKA Squeak, LML Squeak, LLL Squeak Cardiovascular: Normal. negative: Tachycardia, Bradycardia, Irregular, S3, S4, Systolic, Diastolic, Murmur, Edema, Other : negative: Normal, Dysuria, Hematuria, Frequency, Discharge, Testicular Pain, Bleeding, , Other Auscultation: Bowel Sounds: Normal. negative: Bruit, Absent, Increased, Decreased, High Pitched, Other Palpation: negative: Normal, Spleen Enlarged, Liver Enlarged, Mass Pulsatile, Other Tenderness: Normal. negative: Diffuse, RUQ, RLQ, LUQ, LLQ, Epigastric, Periumbilical, Suprapubic, Mild, Moderate, Severe, Rebound, Guarding, Rigidity, Other Skin: Normal. negative: Decreased Turgur, Rash, Papular, Macular, Maculopapular, Vesicular, Pustular, Petechial, Red, Tender, Hot, Diaphoresis, Wound, Bruising, Ecchymosis, Other Musculoskeletal: Normal. negative: Right, Left, Shoulder, Clavicle, Arm, Elbow, Forearm, Wrist, Hand, Hip, Thigh, Knee, Leg, Ankle, Foot, Back:Thoracic, Back:Lumbar, Back:Midline, Back:Paraspinous, Pelvis, Swelling, Tender, Deformity, Pulse Deficit, Motor Deficit, Sensory Deficit, Instability, [place] Psychiatric: Normal. negative: Anxiety, Depression, Agitation, Other Mood Description: Calm, Appropriate. negative: Angry, Apathetic, Depressed, Fearful, Flat, Happy, Hostile, Sad, Suspicious, Withdrawn, Anxious, Labile Affect: Normal. negative: Angry, Anxious, Depressed, Flat, Hysterical, Quiet, Violent Speech Pattern: Clear, Appropriate. negative: Unclear, Inappropriate, Delayed, Slurred, Excessive, Aphasic, Artificially Ventilated, Trach(not ventilated) - Plan Plan: Assessment. 1. Ulcerative colitis with exacerbation. 2. H/O colon cancer, S/P resection. Plan: Stool studies negative. Continue Balsalazide, steroids, IV hydration. Patient may need to be started on biologic for UC, which will be done as outpatient. <LORI VALENZUELA - Last Filed: 05/29/23 19:32> Consult - Medications Home Medications: No Known Drug Allergies Allergy (Verified 04/22/23 10:01) CONTINUE taking the following medications atorvastatin 80 mg tablet 80 mg PO QDAY 05/25/23 [History] balsalazide 750 mg capsule 2,250 mg PO TID 05/25/23 [History] clopidogrel 75 mg tablet 75 mg PO QDAY 05/25/23 [History] diphenoxylate-atropine 2.5 mg-0.025 mg tablet 1 tab PO QID PRN Diarrhea 05/25/23 [History] dorzolamide 2 % eye drops 1 drp ophthalmic (eye) DAILY 05/25/23 [History] gentamicin 0.1 % topical ointment 1 applic topical CONTINUOUS 05/25/23 [History] latanoprost 0.005 % eye drops 1 drp ophthalmic (eye) QPM 05/25/23 [History] metoprolol tartrate 50 mg tablet 25 mg PO BID 05/25/23 [History] oxycodone-acetaminophen 10 mg-325 mg tablet 1 tab PO QID PRN 05/25/23 [History] potassium chloride 20 mEq tablet,extended release(part/cryst) 40 meq PO BID 05/25/23 [History] prednisone 5 mg tablet 20 mg PO DAILY 05/25/23 [History] New Prescriptions lorazepam 0.5 mg tablet 0.5 mg PO BID PRN #60 tabs 05/29/23 [Rx] prednisone 20 mg tablet 20 mg PO BID #60 tabs 05/29/23 [Rx]
== END 2023-05-29 12:30 | disposition home health service (06) | DRG 387 ==
LOC: MED/SURG
PROVIDERS: ADMIT Internal Medicine; ATTEND Internal Medicine
DX: Z85.038 Personal history of other malignant neoplasm of large intestine; E78.2 Mixed hyperlipidemia; I25.10 Atherosclerotic heart disease of native coronary artery without angina pectoris; E11.65 Type 2 diabetes mellitus with hyperglycemia; I10 Essential (primary) hypertension; D50.9 Iron deficiency anemia, unspecified; K51.80 Other ulcerative colitis without complications; Z79.4 Long term (current) use of insulin; E86.0 Dehydration; R53.1 Weakness; R19.7 Diarrhea, unspecified